=== PATIENT | male | born 1965 | race Caucasian/White ===

== ENCOUNTER → 2021-06-23 14:17 | Outpatient (BNVA) | payer OTHER, SELFPAY | PROVIDERS: Family Provider Counselor Professional; Visit Provider Nurse Practitioner Family | DX: Z20.822 Contact with and (suspected) exposure to COVID-19 (principal); J06.9 Acute upper respiratory infection, unspecified | CPT/HCPCS: 87635 ==

== ENCOUNTER 2021-07-12 11:59 | Inpatient (IN) | payer OTHER, SELFPAY ==
[2021-07-12] VITALS (13 sets, daily range): BP systolic 123–150; BP diastolic 76–100; PULSE 66–89; RESP 18–28; TEMP 36.4–36.9; O2SAT 71–100; BMI 25.6; BMI 22.7
--- NOTE | 2021-07-12 12:08 | XR_ITS ---
WS: [id number] Exam: XR chest 1V portable [id number] Date/Time of Exam: 07/12/2021 12:08 PM Reason For Exam: covid pna Comparison 06/23/2018. There is consolidating pneumonia in the bilateral lower lobes as well as the lingula and the right up per lobe. The lungs are fully inflated. Cardiomediastinal silhouette is unremarkable. No pleural effu sions. XR/XR chest 1V portable [id number] IMPRESSION: 1. Bilateral consolidating infiltrates consistent with pneumonia.
--- NOTE | 2021-07-12 12:10 | CT_ITS ---
WS: [id number] CT CHEST ANGIOGRAPHY WITH REFORMATS HISTORY: Short of breath. Evaluate for pulmonary embolism. TECHNIQUE: Contiguous axial images are obtained through the chest during arterial injection of intrav enous contrast. Images are reconstructed to evaluate the pulmonary arteries. MIP imaging also reviewe d. All CT scans at [facility] use at least one of these dose optimization techniques: automat ed exposure control; mA and/or kV adjustment per patient size (includes targeted exams where dose is matched to clinical indication); or iterative reconstruction. CONTRAST: Omnipaque 350; 55 mL IV. DLP: 897.07 mGy.cm COMPARISON: None available. Suboptimal opacification of the pulmonary arteries. Suspicious for pulmonary emboli and a partial milady ling defect in the proximal LEFT lower lobe pulmonary artery. There is significant motion artifact an d adjacent opacification obscuring the pulmonary arteries. Pulmonary artery size is slightly enlarged . Atherosclerosis aorta. There is extensive groundglass and more developing consolidations throughout both lobes, greatest in the lower lung an. Prominent mediastinal and hilar lymph nodes from reactive adenopathy. Mild enl argement of the heart. No RIGHT heart strain. Small effusion surrounding the heart. Upper abdomen is limited by motion artifact. Increase in thoracic kyphosis. CT/CT angio chest PE protcl [id number] IMPRESSION: 1. Suboptimal opacification of pulmonary arteries. Highly suspicious for parti al opacification LEFT lower lobe proximal pulmonary artery. 2. Diffuse bilateral opacifications from Covid 19. 3. Indeterminate but probably reactive lymphadenopathy in the mediastinum and hilum.
--- NOTE | 2021-07-12 12:11 | ED_ITS ---
HPI - General Adult General: Chief complaint: Shortness of Breath/Dyspnea Stated complaint: SOB, COVID Time Seen by Provider: 07/12/21 12:00 History of Present Illness: HPI narrative: CC: Shortness of breath, fever and generalized weakness HPI: This is a 55 yo patient w/ hx of covid diagnosis from 18 days ago BIBA for moderate respiratory distress at home x 18days. Symptoms x 8days and patient was diagnosed with covid now progressively worsening symptoms. Denies chest pain, N/V, diaphoresis, exertional shortness of breath, GI or other complaints. Denies any pleuritic chest pain, recent surgery/immobilization/travel, or hematemesis or hx of VTE in the past. En route, rescue placed on NC with O2 sat of 6-70% on 4L. Patient received 3 breathing treatments in route Onset: 18 days ago Duration: ongoing for the last 8 days Location: home Severity: moderate/severe Associated symptoms: Reports dyspnea and malaise; Deny chest pain, nausea, rash, palpitations or vomiting Review of Systems Const: Reports: fever(s), chills, fatigue and malaise Eyes: Denies: change in vision ENMT: Denies: mouth pain Card: Denies: chest pain or palpitations Resp: Reports: dyspnea and non-productive cough GI: Denies: abdominal pain, nausea, vomiting or diarrhea : Denies: dysuria Musc: Denies: extremity pain Skin/Breast: Denies: rash or new lesions Neuro: Denies: weakness in extremities Psych: Reports: other (Normal mood) Kenroy/Lymph: Denies: easy bruising PFSH ED PFSH: Medical History 2019 novel coronavirus-infected pneumonia (NCIP) Family History Denies family history of CAD (coronary artery disease) Cancer Social History Smoking and tobacco status: never smoked Alcohol intake: never Physical Exam Const: COMMON NORMALS: alert HENMT: COMMON NORMALS: atraumatic HEAD & SCALP: atraumatic MOUTH: moist mucous membranes not abnormal Eye: COMMON NORMALS: EOMs intact bilaterally and conjunctivae normal CONJUNCTIVA: Yes conjunctivae normal Neck/C-Spine: COMMON NORMALS: full ROM and supple Resp: OTHER: Tachypnea, +coarse breath sounds b/l Cardio: COMMON NORMALS: regular rate RATE: regular rate GI: COMMON NORMALS: Soft to palpation and non-tender PALPATION: Yes Soft to palpation Extremity: COMMON NORMALS: full ROM Neuro: SENSORIUM/ORIENTATION: Yes alert MOTOR EXAM: No Abnormal motor strength present and Other motor observations present (no focal motor deficits) Psych: COMMON NORMALS: speech normal SPEECH: Yes normal speech MOOD & AFFECT: Yes euthymic mood Course Vital Signs: Vital signs: Vital Signs Temperature 98.5 F 07/12/21 12:04 Pulse Rate 83 07/12/21 13:09 Respiratory Rate 28 H 07/12/21 13:09 Blood Pressure 145/76 07/12/21 13:09 Pulse Oximetry 92 07/12/21 13:09 MDM - General Adult MDM Narrative: Medical decision making narrative: [55]yo patient w/ hx of covid diagonsis from 3 week ago BIBA for respiratory distress. On arrival patient is satting at 60-70% ON 4l AT HOME with mild increased work of breathing Based on history, exam and findings, presentation most consistent with moderate/severe covid PNA requiring increasing oxygen supprot. Low suspicion for PNA, ACS, tamponade, CHF, aortic dissection. EKG: No signs of STEMI and no evidence of Brugada?s sign, delta wave, epsilon wave, significantly prolonged QTc, or malignant arrhythmia as source of exacerbation. Workup today: ECG, CBC, BMP, Troponin, BNP, CXR, COVID labs, ABG, lactic acid, blood culture Intervention: Tylenol 1gram, PO challenge, serial reassessment, oxygen, remdesivir, decadron [12:30pm] On reassessment, the patient continues to be in moderate respiratory distress requiring high flow at 45L/min at 85%. HDS, AAOx3 and mentating without issues. The patient is now more comfortable on BIPAP compared to prior without any signs of increasing fatigue. At this point, a decision was made to admit patient FOR close observation. Patient agrees with plan. Patient is found to have a possible PE on CTA. S/p heparin bolus and drip. Disposition: Admission for serial observation Lab Data: Labs: Lab Results 07/12/21 07/12/21 07/12/21 12:03 12:25 12:25 WBC RBC Hgb Hct MCV MCH MCHC RDW Plt Count MPV Neut % (Auto) Lymph % (Auto) [place] % (Auto) Eos % (Auto) Baso % (Auto) Neut # (Auto) Lymph # (Auto) [place] # (Auto) Eos # (Auto) Baso # (Auto) Nucleated RBC % (a uto) Nucleated RBCs # PT 17.70 SECONDS H S ECONDS (12.1-14.9) INR 1.41 H (0.8-1.2) Fibrinogen 290 mg/dL mg/dL (174-498) D-Dimer >= 20.00 ug/mIFEU H ug/mIFEU (0-0.59) Specimen Type Arterial Sample Site Radial, left ABG pH 7.50 H (7.35-7.45) ABG pCO2 32.1 mmHg L mmHg (35-45) ABG pO2 54.1 mmHg L mmHg (80.0-100.0) ABG HCO3 24.9 mmol/L mmol/ L (22-26) ABG Base Excess 2.0 mmol/L mmol/L (-2.0-2.0) Nilesh Test Pos Hematocrit 33.9 % L % (42-52) O2 Delivery Device Nrb O2 Liters/Min 15.0 % % FiO2 100.0 % % Side Laster Staple ID Ed Sodium 133 mmol/L L mmol /L (136-145) Potassium 4.4 mmol/L mmol/L (3.5-5.1) Chloride 97 mmol/L L mmol/ L (98-107) Carbon Dioxide 20 mmol/L L mmol/ L (22-29) Anion Gap 20.4 H (5-19) BUN 7 mg/dL mg/dL (6-20) Creatinine 0.5 mg/dL L mg/dL (0.7-1.2) GFR Calculation 171.4 mL/min H mL /min (90-130) Glucose 93 mg/dL mg/dL (65-115) Calculated Osmolal ity 274 mOsm/kg L mOs m/kg (285-295) Lactic Acid Calcium 7.8 mg/dL L mg/dL (8.5-10.5) Magnesium 2.1 mg/dL mg/dL (1.7-2.3) Ferritin 569 ng/mL H ng/mL (30-400) Total Bilirubin 0.4 mg/dL mg/dL (0.15-1.2) AST 28 U/L U/L (0-40) ALT 39 U/L U/L (0-41) Alkaline Phosphata se 357 IU/L H IU/L (40-130) Troponin T Gen 5 n g/L C-Reactive Protein 214.2 mg/L H mg/L (0.0-4.9) NT-Pro-B Natriuret Pep 545 pg/mL H pg/mL (0-125) Total Protein 6.1 g/dL L g/dL (6.6-8.7) Albumin 2.8 g/dL L g/dL (3.5-5.2) Globulin 3.3 g/dL g/dL (1.3-4.6) Procalcitonin 0.09 ng/mL ng/mL (0-0.5) 07/12/21 07/12/21 07/12/21 12:25 12:25 12:25 WBC 13.4 10^3/uL H 10 ^3/uL (4.0-10.0) RBC 3.67 10^6/uL L 10 ^6/uL (4.1-5.3) Hgb 11.0 g/dL L g/dL (11.7-16.6) Hct 34.0 % L % (42.0-52.0) MCV 92.6 fl fl (80-94) MCH 30.0 pg pg (28.0-34.0) MCHC 32.4 g/dL g/dL (30.0-36.0) RDW 13.0 % % (12.1-15.1) Plt Count 294 10^3/cmm 10^3 /cmm (130-400) MPV 10.3 fL fL (7.4-10.4) Neut % (Auto) 74.7 % % Lymph % (Auto) 12.5 % % [place] % (Auto) 9.5 % % Eos % (Auto) 1.9 % % Baso % (Auto) 0.4 % % Neut # (Auto) 10.02 10^3/uL H 1 0^3/uL (1.8-7.7) Lymph # (Auto) 1.7 10^3/uL 10^3/ uL (0.8-4.8) [place] # (Auto) 1.3 10^3/uL H 10^ 3/uL (0.2-0.9) Eos # (Auto) 0.3 10^3/uL 10^3/ uL (0.0-0.8) Baso # (Auto) 0.1 10^3/uL 10^3/ uL (0.0-0.1) Nucleated RBC % (a uto) 0 % % Nucleated RBCs # 0.0 /100WBC /100W BC PT INR Fibrinogen D-Dimer Specimen Type Sample Site ABG pH ABG pCO2 ABG pO2 ABG HCO3 ABG Base Excess Nilesh Test Hematocrit O2 Delivery Device O2 Liters/Min FiO2 Side Laster Staple ID Sodium Potassium Chloride Carbon Dioxide Anion Gap BUN Creatinine GFR Calculation Glucose Calculated Osmolal ity Lactic Acid 1.6 mmol/L mmol/L (0.5-2.2) Calcium Magnesium Ferritin Total Bilirubin AST ALT Alkaline Phosphata se Troponin T Gen 5 n g/L 28 ng/L H ng/L (0-15) C-Reactive Protein NT-Pro-B Natriuret Pep Total Protein Albumin Globulin Procalcitonin Imaging Data^: Other Imaging: Radiologist's impression: [email or web address] [id number] Scan ReportSigned Patient: Geena Landaverde #: [id number]: 1965Acct#:[id number]/Sex: 55 / MADM Date: 07/12/21Loc: [facility]/Bed:Attending Dr: Ordering Provider/Ordering MD: Micky Vela MD Date of Service: 07/12/21 Procedure(s): CT angio chest PE protcl [id number] Accession Number(s): [id number] Report Number: [id number] WS: [id number] CT CHEST ANGIOGRAPHY WITH REFORMATS HISTORY: Short of breath. Evaluate for pulmonary embolism. TECHNIQUE: Contiguous axial images are obtained through the chest during arterial injection of intravenous contrast. Images are reconstructed to evaluate the pulmonary arteries. MIP imaging also reviewed. [facility] CT [email or web address] use at least one of these dose optimization techniques: automated exposure control; mA and/or kV adjustment per patient size (includes targeted exams where dose is matched to clinical indication); or iterative reconstruction. CONTRAST: Omnipaque 350; 55 mL IV. DLP: 897.07 mGy.cm COMPARISON: None available. Suboptimal opacification of the pulmonary arteries. Suspicious for pulmonary emboli and a partial filling defect in the proximal LEFT lower lobe pulmonary artery. There is significant motion artifact and adjacent opacification obscuring the pulmonary arteries. Pulmonary artery size is slightly enlarged. Atherosclerosis aorta. There is extensive groundglass and more developing consolidations throughout both lobes, greatest in the lower lung an. Prominent mediastinal and hilar lymph nodes from reactive adenopathy. Mild enlargement of the heart. No RIGHT heart strain. Small effusion surrounding the heart. Upper abdomen is limited by motion artifact. Increase in thoracic kyphosis. CT/CT angio chest PE protcl [id number] IMPRESSION: 1. Suboptimal opacification of pulmonary arteries. Highly suspicious for partial opacification LEFT lower lobe proximal pulmonary artery. 2. Diffuse bilateral opacifications from Covid 19. 3. Indeterminate but probably reactive lymphadenopathy in the mediastinum and hilum. 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
[2021-07-12 12:13] LABS: ABG PCO2 32.1 mmHg (35-45); Arterial Blood Gas Hematocrit 33.9 % (42-52); Blood Gas Allen Test Pos; Blood Gas Operator Identificat ED; Blood Gas Sample Site Radial, left; Blood Gas Sample Type Arterial; HCO3 ABG 24.9 mmol/L (22-26); Oxygen Device NRB; PO2 ABG 54.1 mmHg (80.0-100.0)
--- NOTE | 2021-07-12 12:20 | ECG_ITS ---
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 Measurements Intervals Stow Rate: 82 P: 64 MA: 166 QRS: -3 QRSD: 102 T: 39 QT: 392 QTc: 461 Interpretive Statements SINUS RHYTHM POSSIBLE LEFT ATRIAL ENLARGEMENT [-0.1mV P-WAVE IN V1/V2] Compared to ECG 06/24/2018 00:50:55 No significant changes Electronically Signed On 07-15-2021 19:33:40 POLITICAL SCIENCE CHAIR by Eufemia Figueroa M.D. [id number]
[2021-07-12] MEDS: dexamethasone 4 mg/mL INJ 6 MG IVP (12:37)
[2021-07-12 12:42] LABS: Basophils # 0.1 10^3/uL (0.0-0.1); Basophils % 0.4 %; Eosinophils # 0.3 10^3/uL (0.0-0.8); Eosinophils % 1.9 %; Lymphocytes # 1.7 10^3/uL (0.8-4.8); Lymphocytes % 12.5 %; Mean Corpuscular HGB Conc 32.4 g/dL (30.0-36.0); Mean Corpuscular Volume 92.6 fl (80-94); Mean Platelet Volume 10.3 fL (7.4-10.4); Monocytes # 1.3 10^3/uL (0.2-0.9); Monocytes % 9.5 %; Neutrophils # 10.02 10^3/uL (1.8-7.7); Neutrophils % 74.7 %; Nucleated Red Blood Cells % 0 %; Platelet Count 294 10^3/cmm (130-400); Red Blood Count 3.67 10^6/uL (4.1-5.3); White Blood Count 13.4 10^3/uL (4.0-10.0)
[2021-07-12] MEDS: iohexol 350 mg/mL 100 mL Btl IV (12:56)
--- NOTE | 2021-07-12 12:58 | PC.NURSE ---
patient returned to room from ct. patient placed on nuclear monitoring technician. patient in n obvious distress.
[2021-07-12 13:00] LABS: Fibrinogen 290 mg/dL (174-498)
[2021-07-12 13:03] LABS: INR 1.41 (0.8-1.2)
[2021-07-12 13:05] LABS: Lactic Sepsis W/Reflex 1.6 mmol/L (0.5-2.2)
[2021-07-12 13:08] LABS: Troponin T (5th) Once 28 ng/L (0-15)
[2021-07-12 13:14] LABS: NT Pro B Type Natriuretic Pept 545 pg/mL (0-125); Procalcitonin 0.09 ng/mL (0-0.5)
[2021-07-12] MEDS: remdesivir 200 MG in sodium chloride 0.9% (100 ml) 60 ML 100 MG IV (13:23)
[2021-07-12 13:26] LABS: Alanine Aminotransferase 39 U/L (0-41); Albumin Level 2.8 g/dL (3.5-5.2); Alkaline Phosphatase 357 IU/L (40-130); Anion Gap 20.4 (5-19); Aspartate Amino Transferase 28 U/L (0-40); Blood Urea Nitrogen 7 mg/dL (6-20); C Reactive Protein 214.2 mg/L (0.0-4.9); Calcium 7.8 mg/dL (8.5-10.5); Carbon Dioxide 20 mmol/L (22-29); Chloride 97 mmol/L (98-107); Ferritin 569 ng/mL (30-400); Globulin 3.3 g/dL (1.3-4.6); Glomerular Filtration Rate 171.4 mL/min (90-130); Glucose 93 mg/dL (65-115); Magnesium 2.1 mg/dL (1.7-2.3); Osmolality Calculated 274 mOsm/kg (285-295); Potassium 4.4 mmol/L (3.5-5.1); Sodium 133 mmol/L (136-145); Total Bilirubin 0.4 mg/dL (0.15-1.2); Total Protein 6.1 g/dL (6.6-8.7)
[2021-07-12 13:30] LABS: D Dimer >= 20.00 ug/mIFEU (0-0.59)
[2021-07-12] MEDS: heparin 5,000 unit/mL INJ 1 mL 4000 UNIT IVP (13:44)
[2021-07-12] MEDS: heparin drip 25,000 UNIT/500 ML PREMIX 19.56 UNIT IV (13:55)
--- NOTE | 2021-07-12 15:03 | PC.NURSE ---
ekta sleeping comfortably in bed at this time. patient on cardiac exercise specialist. HI-MIKY nasal cannula at 45 lpm @ 85% going. patient spo2 99%. patient in no obvious distress. Side rails raised x 2 and bed in low, locked position. call light withn reach.
--- NOTE | 2021-07-12 15:37 | P.HP_ITS ---
Providers/Chief Complaint Primary Care Provider: [facility] Chief Complaint: SOB, COVID History of Present Illness Pleasant 55-year-old gentleman originally diagnosed with COVID-19 on 06/23 return to the hospital due to severe dyspnea, cough, blood-tinged, diagnosed with COVID-19 on 06/23. In ER she is found to be in hypoxic respiratory failure, requiring initially 85% FiO2 by heated high flow cannula. D-dimer noted elevated more than 20. CT angiogram of the chest with findings of suboptimal obfuscation of the pulmonary arteries, but highly suspicious for partial opacification left left lower lobe proximal pulmonary artery. Diffuse bilateral opacifications from COVID-19. Indeterminate but probably reactive ly mphadenopathy in the mediastinum and hilum. She reports coughing, also having headaches, previously diarrhea, some blood in stool. Review of Systems 2 Const: Reports: fatigue and malaise Eyes: Denies: change in vision ENMT: Denies: odynophagia or swelling of lips/tongue Card: Reports: dyspnea on exertion; Denies: chest pain, palpitations, irregular heart rhythm, swelling of feet/ankles or syncope Resp: Reports: dyspnea, non-productive cough and hemoptysis GI: Reports: diarrhea and other (Small of blood in the bowl, small amount of the tissue paper); Denies: abdominal pain, nausea or vomiting : Denies: flank pain, dysuria or hematuria Musc: Denies: extremity pain or extremity swelling Skin/Breast: Denies: rash, erythema or new lesions Neuro: Reports: headache(s); Denies: numbness in extremities, weakness in extremities, sensory changes or lack of coordination Ken[place]/Lymph: Denies: petechiae Medications/Allergies Home Medications Medication Instructions Recorded Confirmed Last Taken Type No Known Home Medications 06/23/21 07/12/21 Unknown History Allergies Allergy/AdvReac Type Severity Reaction Status Date / Time No Known Allergies Allergy Verified 07/12/21 13:59 PFSH Acute PFSH: Medical History 2019 novel coronavirus-infected pneumonia (NCIP) No significant past medical history Surgical History H/O hand surgery Family History Denies family history of CAD (coronary artery disease) Cancer Social History Smoking and tobacco status: former smoker Alcohol intake: never Substance/Drug Use: never Marital status: Current occupational status: employed Vitals/I&O/Wt Last Vital Signs Temp 98.5 F 07/12/21 12:04 Pulse 73 07/12/21 15:11 Resp 18 07/12/21 15:11 BP 150/100 07/12/21 14:41 Pulse Ox 100 07/12/21 15:11 Weight last 48 hrs Weight 69.853 kg Physical Exam Const: COMMON NORMALS: no acute distress and patient oriented x3 HENMT: COMMON NORMALS: oropharynx normal Neck/C-Spine: COMMON NORMALS: no JVD Resp: COMMON NORMALS: normal respiratory effort and clear to auscultation bilaterally AUSCULTATION: clear to auscultation bilaterally Cardio: COMMON NORMALS: no JVD, regular rhythm, S1 normal heart sound present, S2 normal heart sound present and No murmurs present (Cardio) RHYTHM: regular rhythm HEART SOUNDS: S1 normal heart sound present and S2 normal heart sound present GI: COMMON NORMALS: Normal to inspection, nondistended, normoactive bowel sounds present, Soft to palpation and non-tender PALPATION: Yes Soft to palpation Extremity: COMMON NORMALS: no joint enlargement and no pedal edema Neuro: COMMON NORMALS: patient oriented x3 and moves all extremities Skin: COMMON NORMALS: no rashes or lesions noted GENERAL SKIN EXAM: no rashes or lesions noted Data : 07/12/21 12:25 07/12/21 12:25 Micro: Microbiology 07/12/21 13:55 Blood Culture - Preliminary Blood SPECIMEN COLLECTED 07/12/21 12:25 Blood Culture - Preliminary Blood SPECIMEN COLLECTED A&P Assessment and plan (1) Pulmonary embolism: Suboptimal imaging, but findings suspicious for left lower lobe PE. Started on anticoagulation. With some report of blood in the toilet bowl, on tissue paper, started from now on heparin drip. Monitor for any worsening bleeding. Monitor hemodynamics. So far no suggestion of hemodynamic instability. Discussed with him transition possibly to Lovenox in case he is tolerating heparin drip well, and transition to oral anticoagulant at that time he is ready to leave the hospital. Status: Acute (2) Acute hypoxemic respiratory failure: Requiring 85% FiO2 initially. Somewhat better after started on treatment down to 50% FiO2. Continue oxygen support. Started on Decadron, remdesivir. CRP is elevated. Recheck in the morning. In case worsening despite current therapy with elevated CRP, consider additional measures. In addition to Decadron, Omnicef, continue supportive measures, antitussives. Status: Acute (3) 2019 novel coronavirus-infected pneumonia (NCIP): As above. Status: Acute Additional A&P Information Hematochezia: Small amount of blood in the bowl, small amount of tissue paper. Monitor for any worse bleeding as he is requiring anticoagulation currently. Once his condition improves would benefit from additional assessment by colonoscopy. Attestations Medical Necessity Statement*: Admission of over 2 midnights is currently needed for assessment of management of hypoxic respite failure with severe COVID-19. Coding Level of Care Code Acute Drip Box Tender for Nella Roni Diagnoses Pulmonary embolism I26.99 Acute hypoxemic respiratory failure J96.01 2019 novel coronavirus-infected pneumonia (NCIP) U07.1; J12.82
[2021-07-12] MEDS: lactated ringers 1,000 ML 100 ML IV (20:21)
[2021-07-12] MEDS: pantoprazole DR 40 mg Tablet PO (20:21)
[2021-07-12 20:46] LABS: Partial Thromboplastin Time 38.9 SECONDS (23.9-36.7)
--- NOTE | 2021-07-12 20:58 | PC.NURSE ---
i reported high reps 22 to nurse
[2021-07-12 22:37] LABS: Hemoglobin 12.2 g/dL (11.7-16.6)
[2021-07-13] VITALS (17 sets, daily range): BP systolic 123–145; BP diastolic 69–89; PULSE 66–86; RESP 16–24; TEMP 36.4–37.2; O2SAT 55–95
[2021-07-13 02:26] LABS: Basophils % 0.2 %; Hematocrit 33.7 % (42.0-52.0); Hemoglobin 11.1 g/dL (11.7-16.6); Lymphocytes # 1.1 10^3/uL (0.8-4.8); Lymphocytes % 11.4 %; Mean Corpuscular HGB Conc 32.9 g/dL (30.0-36.0); Mean Corpuscular Hemoglobin 29.7 pg (28.0-34.0); Mean Corpuscular Volume 90.1 fl (80-94); Mean Platelet Volume 10.4 fL (7.4-10.4); Neutrophils # 7.58 10^3/uL (1.8-7.7); Neutrophils % 77.4 %; Nucleated Red Blood Cells % 0 %; Platelet Count 352 10^3/cmm (130-400); Red Blood Count 3.74 10^6/uL (4.1-5.3); Red Cell Distribution Width 12.8 % (12.1-15.1); White Blood Count 9.8 10^3/uL (4.0-10.0)
[2021-07-13 02:39] LABS: Alanine Aminotransferase 31 U/L (0-41); Albumin Level 2.7 g/dL (3.5-5.2); Alkaline Phosphatase 315 IU/L (40-130); Anion Gap 17.3 (5-19); Aspartate Amino Transferase 18 U/L (0-40); Blood Urea Nitrogen 14 mg/dL (6-20); Calcium 7.7 mg/dL (8.5-10.5); Carbon Dioxide 21 mmol/L (22-29); Chloride 101 mmol/L (98-107); Globulin 3.1 g/dL (1.3-4.6); Glomerular Filtration Rate 221.7 mL/min (90-130); Glucose 140 mg/dL (65-115); Osmolality Calculated 283 mOsm/kg (285-295); Potassium 4.3 mmol/L (3.5-5.1); Sodium 135 mmol/L (136-145); Total Bilirubin 0.2 mg/dL (0.15-1.2); Total Protein 5.8 g/dL (6.6-8.7)
[2021-07-13 02:46] LABS: Partial Thromboplastin Time 47.9 SECONDS (23.9-36.7)
[2021-07-13 03:14] LABS: D Dimer > 20.00 ug/mIFEU (0-0.59)
[2021-07-13] MEDS: heparin 5,000 unit/mL INJ 1 mL IV ×2 (03:34→10:30)
[2021-07-13] MEDS: acetaminophen 325 mg Tablet 650 MG PO (05:04)
[2021-07-13] MEDS: lactated ringers 1,000 ML 100 ML IV ×2 (05:35→15:08)
[2021-07-13] MEDS: pantoprazole DR 40 mg Tablet PO (09:05)
[2021-07-13 09:56] LABS: Partial Thromboplastin Time 38.9 SECONDS (23.9-36.7)
[2021-07-13] MEDS: dexamethasone 10 mg/mL INJ 6 MG IVP (13:03)
[2021-07-13] MEDS: ipratropium-albuterol 3 mL Neb INHALATION ×2 (14:19→20:06)
[2021-07-13] MEDS: enoxaparin 80 mg/0.8 mL Syringe 70 MG SUBCUT (15:07)
--- NOTE | 2021-07-13 15:11 | PC.NURSE ---
Dr. Rushing gave orders to stop Heprin drip at 1440.
[2021-07-13] MEDS: remdesivir 100 MG in sodium chloride 0.9% (100 ml) 80 ML IV (18:50)
--- NOTE | 2021-07-13 21:06 | P.PN_ITS ---
Subjective Subjective: Interval history: Denies chest pain or pressure. No hemoptysis. No bloody stool. Vitals/I&O/Wt Last Vital Signs Temp 98.2 F 07/13/21 19:46 Pulse 78 07/13/21 20:16 Resp 18 07/13/21 20:16 BP 128/69 07/13/21 19:46 Pulse Ox 94 07/13/21 20:16 07/13/21 07/13/21 07/13/21 06:59 14:59 22:59 Intake Total 1187.393 / 1187.393 335.94 / 335.94 955 / 1290.94 Output Total 0 / 0 300 / 300 1300 / 1600 Balance 1187.393 / 1187.393 35.94 / 35.94 -345 / -309.06 Weight last 48 hrs Weight 69.853 kg Weight 69.853 kg Physical Exam Const: COMMON NORMALS: no acute distress and patient oriented x3 HENMT: COMMON NORMALS: oropharynx normal Neck/C-Spine: COMMON NORMALS: no JVD Resp: COMMON NORMALS: normal respiratory effort and clear to auscultation bilaterally AUSCULTATION: clear to auscultation bilaterally OTHER: Coarse breath sounds. No crackles. Cardio: COMMON NORMALS: no JVD, regular rhythm, S1 normal heart sound present, S2 normal heart sound present and No murmurs present (Cardio) RHYTHM: regular rhythm HEART SOUNDS: S1 normal heart sound present and S2 normal heart sound present GI: COMMON NORMALS: Normal to inspection, nondistended, normoactive bowel sounds present, Soft to palpation and non-tender PALPATION: Yes Soft to palpation Extremity: COMMON NORMALS: no joint enlargement and no pedal edema Neuro: COMMON NORMALS: patient oriented x3 and moves all extremities Skin: COMMON NORMALS: no rashes or lesions noted GENERAL SKIN EXAM: no rashes or lesions noted Data : 07/13/21 02:02 07/13/21 02:02 Micro: Microbiology 07/12/21 13:55 Blood Culture - Preliminary Blood NEGATIVE TO DATE 07/12/21 12:25 Blood Culture - Preliminary Blood NEGATIVE TO DATE A&P Assessment and plan (1) Pulmonary embolism: Hemoglobin slightly down to 11, similar to presentation. No hemoptysis. No bloody stool. Switch from heparin drip to Lovenox. Reassess hemoglobin in the morning. Gradual improvement of oxygen requirement. Suboptimal imaging, but findings suspicious for left lower lobe PE. Started on anticoagulation. With some report of blood in the toilet bowl, on tissue paper, started from now on heparin drip. Monitor for any worsening bleeding. Monitor hemodynamics. So far no suggestion of hemodynamic instability. Discussed with him transition possibly to Lovenox in case he is tolerating heparin drip well, and transition to oral anticoagulant at that time he is ready to leave the hospital. Status: Acute (2) Acute hypoxemic respiratory failure: Gradual improvement of oxygen requirement, FiO2 down to 50%. Continue anticoagulation for PE. Continue oxygen support and wean as tolerated. Continue on Decadron, remdesivir. CRP is elevated. Recheck in the morning. Repeat CRP Status: Acute (3) 2019 novel coronavirus-infected pneumonia (NCIP): As above. Status: Acute Additional A&P Information Hematochezia: So far without recurrence. Small amount of blood in the bowl, small amount of tissue paper. Monitor for any worse bleeding as he is requiring anticoagulation currently. Once his condition improves would benefit from additional assessment by colonoscopy. Attestations Medical Necessity Statement*: Continue admission for assessment management of hypoxic respiratory failure with PE, severe COVID-19. Coding Level of Care Code Acute Project Asst for [facility] Roni Diagnoses Pulmonary embolism I26.99 Acute hypoxemic respiratory failure J96.01 2019 novel coronavirus-infected pneumonia (NCIP) U07.1; J12.82
[2021-07-14] VITALS (14 sets, daily range): BP systolic 104–152; BP diastolic 59–80; PULSE 22–101; RESP 16–51; TEMP 36.4–36.9; O2SAT 80–95
[2021-07-14] MEDS: lactated ringers 1,000 ML 100 ML IV ×3 (00:18→20:23)
[2021-07-14] MEDS: ipratropium-albuterol 3 mL Neb INHALATION ×4 (02:32→20:32)
[2021-07-14] MEDS: enoxaparin 80 mg/0.8 mL Syringe 70 MG SUBCUT ×2 (02:51→14:45)
[2021-07-14] MEDS: acetaminophen 325 mg Tablet 650 MG PO ×2 (02:51→21:03)
[2021-07-14 06:20] LABS: Basophils % 0.1 %; Hemoglobin 10.4 g/dL (11.7-16.6); Lymphocytes # 1.2 10^3/uL (0.8-4.8); Lymphocytes % 8.3 %; Mean Corpuscular HGB Conc 32.5 g/dL (30.0-36.0); Mean Corpuscular Volume 92.2 fl (80-94); Mean Platelet Volume 10.6 fL (7.4-10.4); Monocytes # 1.3 10^3/uL (0.2-0.9); Monocytes % 9.2 %; Neutrophils % 81.7 %; Nucleated Red Blood Cells % 0 %; Platelet Count 432 10^3/cmm (130-400); Red Blood Count 3.47 10^6/uL (4.1-5.3); Red Cell Distribution Width 12.9 % (12.1-15.1); White Blood Count 14.2 10^3/uL (4.0-10.0)
[2021-07-14 06:32] LABS: Alanine Aminotransferase 27 U/L (0-41); Albumin Level 2.6 g/dL (3.5-5.2); Alkaline Phosphatase 266 IU/L (40-130); Anion Gap 17.2 (5-19); Aspartate Amino Transferase 17 U/L (0-40); Blood Urea Nitrogen 11 mg/dL (6-20); Carbon Dioxide 20 mmol/L (22-29); Chloride 102 mmol/L (98-107); Globulin 3.1 g/dL (1.3-4.6); Glomerular Filtration Rate 221.7 mL/min (90-130); Glucose 122 mg/dL (65-115); Osmolality Calculated 281 mOsm/kg (285-295); Potassium 4.2 mmol/L (3.5-5.1); Sodium 135 mmol/L (136-145); Total Bilirubin 0.2 mg/dL (0.15-1.2); Total Protein 5.7 g/dL (6.6-8.7)
[2021-07-14 06:39] LABS: C Reactive Protein 181.6 mg/L (0.0-4.9)
[2021-07-14 06:44] LABS: D Dimer >= 20.00 ug/mIFEU (0-0.59)
[2021-07-14] MEDS: pantoprazole DR 40 mg Tablet PO (08:57)
[2021-07-14] MEDS: dexamethasone 10 mg/mL INJ 6 MG IVP (11:13)
[2021-07-14] MEDS: ALPRAZolam 0.5 mg Tablet 0.25 MG PO ×3 (11:14→21:04)
[2021-07-14] MEDS: remdesivir 100 MG in sodium chloride 0.9% (100 ml) 80 ML IV (17:25)
--- NOTE | 2021-07-14 19:01 | P.PN_ITS ---
Subjective Subjective: Interval history: This morning feeling weak and tired, FiO2 was increased to 65%. Denies chest pain. No headache, nausea or vomiting. Vitals/I&O/Wt Last Vital Signs Temp 98.4 F 07/14/21 16:00 Pulse 51 L 07/14/21 18:51 Resp 26 H 07/14/21 18:51 BP 135/65 07/14/21 16:00 Pulse Ox 93 07/14/21 18:51 07/14/21 07/14/21 07/14/21 06:59 14:59 22:59 Intake Total 916.667 / 2207.607 1940 / 1940 100 / 2040 Output Total 1120 / 3140 1900 / 1900 550 / 2450 Balance -203.333 / -932.393 40 / 40 -450 / -410 Weight last 48 hrs Weight 65.516 kg Weight 69.853 kg Physical Exam Const: COMMON NORMALS: no acute distress and patient oriented x3 HENMT: COMMON NORMALS: oropharynx normal Neck/C-Spine: COMMON NORMALS: no JVD Resp: COMMON NORMALS: normal respiratory effort and clear to auscultation bilaterally AUSCULTATION: clear to auscultation bilaterally Cardio: COMMON NORMALS: no JVD, regular rhythm, S1 normal heart sound present, S2 normal heart sound present and No murmurs present (Cardio) RHYTHM: regular rhythm HEART SOUNDS: S1 normal heart sound present and S2 normal heart sound present GI: COMMON NORMALS: Normal to inspection, nondistended, normoactive bowel sounds present, Soft to palpation and non-tender PALPATION: Yes Soft to palpation Extremity: COMMON NORMALS: no joint enlargement and no pedal edema Neuro: COMMON NORMALS: patient oriented x3 and moves all extremities Skin: COMMON NORMALS: no rashes or lesions noted GENERAL SKIN EXAM: no rashes or lesions noted Data : 07/14/21 05:05 07/14/21 05:05 Micro: Microbiology 07/12/21 13:55 Blood Culture - Preliminary Blood NEGATIVE TO DATE A&P Assessment and plan (1) Acute hypoxemic respiratory failure: With worsening oxygenation, worsening hypoxic respiratory failure, requiring higher FiO2, feeling weak, tired, desaturating easily, with elevated inflammatory marker, we discussed additional option of treatment with baricitinib. Discussed risks, possible benefits, he agreed to proceed and the medication was requested for him. Continue oxygen support. Wean down as tolerating. Continue on Decadron, remdesivir. Status: Acute (2) Pulmonary embolism: Continue Lovenox. Monitor hemoglobin. Switch to p.o. anticoagulation prior to discharge. Hemodynamically has been stable. Status: Acute (3) 2019 novel coronavirus-infected pneumonia (NCIP): As above. Status: Acute Additional A&P Information Hematochezia: So far without recurrence. Small amount of blood in the bowl, small amount of tissue paper. Monitor for any worse bleeding as he is requiring anticoagulation currently. Once his condition improves would benefit from additional assessment by colonoscopy. Attestations Medical Necessity Statement*: Continue admission for assessment of management of hypoxic respiratory failure with severe COVID-19, PE. 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
--- NOTE | 2021-07-14 20:00 | PC.NURSE ---
after vitals pt O2 found to be 80% on HHF, nurse notified.
--- NOTE | 2021-07-14 20:07 | PC.NURSE ---
Shift report received from Suma JIN. Patient in bed/resting. No s/s of pain or discomfort. O2 45/40. IV patent infusing LR at 100mL/hr. No needs noted at this time.
--- NOTE | 2021-07-14 21:33 | PC.NURSE ---
patient laying on right side O2 sat 90 %. Education provided to lie prone to help improve O2 sats. Verbalized understanding.
--- NOTE | 2021-07-14 23:20 | PC.NURSE ---
patient in bed /resting / laying on right side O2 92% No s/s of pain or discomfort
[2021-07-15] VITALS (14 sets, daily range): BP systolic 118–168; BP diastolic 74–85; PULSE 52–98; RESP 18–26; TEMP 36.2–36.8; O2SAT 84–96
[2021-07-15] MEDS: enoxaparin 80 mg/0.8 mL Syringe 70 MG SUBCUT ×2 (02:52→12:54)
--- NOTE | 2021-07-15 03:01 | PC.NURSE ---
Patient lying on right side O2 sats 84 % / O2 55/60. RT notified via secure text message.
[2021-07-15] MEDS: ALPRAZolam 0.5 mg Tablet 0.25 MG PO ×3 (03:17→22:41)
--- NOTE | 2021-07-15 03:26 | PC.NURSE ---
RT in room assessing O2 sat.
[2021-07-15] MEDS: ipratropium-albuterol 3 mL Neb INHALATION ×4 (03:29→20:26)
[2021-07-15] MEDS: acetaminophen 325 mg Tablet 650 MG PO (04:59)
--- NOTE | 2021-07-15 05:09 | PC.NURSE ---
Patient sitting up in bed/ O2 90%. Tylenol administered for c/o of headache.
[2021-07-15] MEDS: lactated ringers 1,000 ML 100 ML IV ×3 (05:15→23:57)
[2021-07-15 05:45] LABS: Basophils % 0.1 %; Hematocrit 37.4 % (42.0-52.0); Hemoglobin 11.9 g/dL (11.7-16.6); Lymphocytes # 1.5 10^3/uL (0.8-4.8); Lymphocytes % 11.3 %; Mean Corpuscular HGB Conc 31.8 g/dL (30.0-36.0); Mean Corpuscular Hemoglobin 29.5 pg (28.0-34.0); Mean Corpuscular Volume 92.6 fl (80-94); Mean Platelet Volume 10.3 fL (7.4-10.4); Monocytes # 1.2 10^3/uL (0.2-0.9); Monocytes % 8.6 %; Neutrophils # 10.57 10^3/uL (1.8-7.7); Neutrophils % 78.7 %; Nucleated Red Blood Cells % 0 %; Platelet Count 412 10^3/cmm (130-400); Red Blood Count 4.04 10^6/uL (4.1-5.3); Red Cell Distribution Width 12.9 % (12.1-15.1); White Blood Count 13.4 10^3/uL (4.0-10.0)
[2021-07-15 06:19] LABS: D Dimer >= 20.00 ug/mIFEU (0-0.59)
--- NOTE | 2021-07-15 07:56 | PC.NURSE ---
Call light answered by this nurse. Patient requesting something to drink. Ice water taken to patient at this time. Patient then states he was suppose to be given a telephone for his room but it has yet to happen. This nurse left room and returned with telephone to plug in to wall. Patient picked up phone and attempted to make a phone call. Once patient was unable to make call patient told this nurse that The fucking phone was no good if it couldn't make phone calls . This nurse attempted to help patient make phone call. Patient then became outraged again and called nurse chemo bustos idiotic bitch . This nurse asked patient how this nurse was being one if author was only trying to help patient make phone call. Patient then states he would like to sign papers to leave hospital at this time Dr. Leo notified at this time via telephone of patient stating he was leaving A. Doctor stated he would be up as soon as possible to speak with patient. Respiratory then notified via telephone per doctor request. RT states she will be up as soon as she was finished with treatment. Patient updated of all information given.
[2021-07-15] MEDS: pantoprazole DR 40 mg Tablet PO (08:47)
[2021-07-15] MEDS: dexamethasone 10 mg/mL INJ 6 MG IVP (10:26)
[2021-07-15] MEDS: remdesivir 100 MG in sodium chloride 0.9% (100 ml) 80 ML IV (17:16)
--- NOTE | 2021-07-15 20:29 | PM.PN ---
Subjective Subjective: Interval history: This morning very upset stating that he does not want to prone, stating he does not know what is going on, requesting for discharge. Discussed with him that as per prior discussions he is being treated for respiratory failure secondary to severe COVID-19, ARDS, as well as PE. Discussed current high oxygen requirement, which she was unachievable at this time at home, and discharge at this time would be risking a fatal outcome. Discussed with him that he certainly does not have to force himself to self prone. This may be beneficial if he is able to go possibly on his side as had been discussed several days back, however, it is definitely not mandatory. Discussed with him plans for continued therapy with Decadron, remdesivir, baricitinib which was initiated yesterday as well as per discussion. He seems to recall all this upon discussion. Seems he has been getting anxious. Discussed with him hypoxia certainly can be triggered anxiety complaints he states he has had issues with anxiety in the past which was unresponsive to buspirone. Discussed that we may additionally treat with Xanax for episodes of anxiety to which he is agreeable. Vitals/I&O/Wt Last Vital Signs Temp 98.2 F 07/15/21 16:00 Pulse 88 07/15/21 20:24 Resp 20 H 07/15/21 20:24 BP 124/79 07/15/21 16:00 Pulse Ox 91 07/15/21 20:24 07/15/21 07/15/21 07/15/21 06:59 14:59 22:59 Intake Total 886.667 / 3925.000 720 / 720 1100 / 1820 Output Total 800 / 4375 2550 / 2550 600 / 3150 Balance 86.667 / -450.000 -1830 / -1830 500 / -1330 Weight last 48 hrs Weight 65.516 kg Weight 65.516 kg Physical Exam Const: COMMON NORMALS: no acute distress and patient oriented x3 HENMT: COMMON NORMALS: oropharynx normal Neck/C-Spine: COMMON NORMALS: no JVD Resp: COMMON NORMALS: normal respiratory effort and clear to auscultation bilaterally AUSCULTATION: clear to auscultation bilaterally OTHER: Coarse breath sounds. Cardio: COMMON NORMALS: no JVD, regular rhythm, S1 normal heart sound present, S2 normal heart sound present and No murmurs present (Cardio) RHYTHM: regular rhythm HEART SOUNDS: S1 normal heart sound present and S2 normal heart sound present GI: COMMON NORMALS: Normal to inspection, nondistended, normoactive bowel sounds present, Soft to palpation and non-tender PALPATION: Yes Soft to palpation Extremity: COMMON NORMALS: no joint enlargement and no pedal edema Neuro: COMMON NORMALS: patient oriented x3 and moves all extremities Skin: COMMON NORMALS: no rashes or lesions noted GENERAL SKIN EXAM: no rashes or lesions noted Data : 07/15/21 05:15 07/14/21 05:05 A&P Assessment and plan (1) Acute hypoxemic respiratory failure: This morning low oxygen saturations, but appears in large part due to episodes of anxiety, not cooperating well with oxygen therapy. Doing better in the afternoon. Xanax escalated to 0.25 mg every 4 hours as needed. Monitor, may need to further increase. Continue Decadron, remdesivir, baricitinib. Continue anticoagulation. He is agreeable to continue heated high flow oxygen. Wean down as tolerated. Status: Acute (2) Pulmonary embolism: Continue Lovenox. Monitor hemoglobin. Switch to p.o. anticoagulation prior to discharge. Hemodynamically has been stable. Status: Acute (3) 2019 novel coronavirus-infected pneumonia (NCIP): As above. Status: Acute Additional A&P Information Hematochezia: So far without recurrence. Small amount of blood in the bowl, small amount of tissue paper. Monitor for any worse bleeding as he is requiring anticoagulation currently. Once his condition improves would benefit from additional assessment by colonoscopy. Attestations Medical Necessity Statement*: Continue admission for assessment of management of hypoxic respiratory failure with severe COVID-19. 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
--- NOTE | 2021-07-15 20:52 | PC.NURSE ---
Shift report received from Suma JIN. Patient in bed/awake. O2 45/60. Productive cough. No needs voiced at this time.
[2021-07-16] VITALS (37 sets, daily range): BP systolic 116–156; BP diastolic 83–98; PULSE 65–109; RESP 18–42; TEMP 36.4–36.9; O2SAT 83–99
[2021-07-16] MEDS: acetaminophen 325 mg Tablet 650 MG PO (01:56)
[2021-07-16] MEDS: ipratropium-albuterol 3 mL Neb INHALATION ×3 (03:20→20:23)
[2021-07-16] MEDS: enoxaparin 80 mg/0.8 mL Syringe 70 MG SUBCUT ×2 (04:41→17:03)
[2021-07-16 07:24] LABS: Alanine Aminotransferase 43 U/L (0-41); Albumin Level 3.1 g/dL (3.5-5.2); Alkaline Phosphatase 356 IU/L (40-130); Anion Gap 20.2 (5-19); Aspartate Amino Transferase 30 U/L (0-40); Blood Urea Nitrogen 12 mg/dL (6-20); Calcium 8.2 mg/dL (8.5-10.5); Carbon Dioxide 17 mmol/L (22-29); Chloride 103 mmol/L (98-107); Glomerular Filtration Rate 221.7 mL/min (90-130); Glucose 83 mg/dL (65-115); Osmolality Calculated 281 mOsm/kg (285-295); Potassium 4.2 mmol/L (3.5-5.1); Sodium 136 mmol/L (136-145); Total Bilirubin 0.3 mg/dL (0.15-1.2); Total Protein 6.1 g/dL (6.6-8.7)
[2021-07-16] MEDS: lactated ringers 1,000 ML 100 ML IV (08:18)
[2021-07-16] MEDS: pantoprazole DR 40 mg Tablet PO (08:19)
--- NOTE | 2021-07-16 10:37 | PC.NURSE ---
Collette called this nurse at this time. Update given on patient. expressed thanks and understanding of cares. This nurse did state that if things changed update would be given.
[2021-07-16] MEDS: dexamethasone 10 mg/mL INJ 6 MG IVP (10:46)
[2021-07-16 12:07] LABS: Basophils % 0.1 %; Eosinophils # 0.3 10^3/uL (0.0-0.8); Eosinophils % 2.2 %; Hematocrit 35.9 % (42.0-52.0); Hemoglobin 11.8 g/dL (11.7-16.6); Lymphocytes # 1.9 10^3/uL (0.8-4.8); Lymphocytes % 12.8 %; Mean Corpuscular HGB Conc 32.9 g/dL (30.0-36.0); Mean Corpuscular Volume 91.3 fl (80-94); Mean Platelet Volume 9.6 fL (7.4-10.4); Monocytes # 1.2 10^3/uL (0.2-0.9); Neutrophils # 10.92 10^3/uL (1.8-7.7); Neutrophils % 75.9 %; Nucleated Red Blood Cells % 0 %; Platelet Count 316 10^3/cmm (130-400); Red Blood Count 3.93 10^6/uL (4.1-5.3); White Blood Count 14.4 10^3/uL (4.0-10.0)
--- NOTE | 2021-07-16 14:21 | PC.CHAP ---
Pastoral Care Encounter/Spiritual Assessment Type of Contact [] Declined retail agent visit [xx] Patient Request visit [] Outpatient visit [] Follow-up visit [] Physician referral [] Code/Alert [xx] Routine visit [xx] Staff referral [] Actively dying [] Patient sleeping [] Family support [] [] Out of room [] Palliative care [] [] Receiving care in room [] Pre-surgical visit [] Trauma [] Long length of stay [] ICU visit [xx] Other: covid-19 patient Relational/Emotional Strength [xx] Patient feels connected with others/family/visitors/staff [] Distress [] Loneliness/isolation [] Abandonment Spirituality of Patient [xx] Person of Krista [] Attends Mandaen of their Krista [xx] Believes in Prayer [] Reads Bible or Pentecostalism materials [xx] There are Spiritual issues to be addressed Ship Steward Interventions [xx] Prayer [xx] Active listening [xx] Non-anxious presence [xx] Spiritual/emotional support [] Crisis/trauma care [xx] Spiritual counseling [] Bereavement support [] Provided bereavement packet [] Provided Bible/devotional materials [] Provided toy/stuffed animal, coloring book to patient or family member [] Provided Communion [] Anointing/[place] [XX] Salvation [xx] Completed spiritual assessment [] Other: Impact on Illness or Injury [] Angry [] Fearful [] Anxious [] Often cries [] Exhaustion [] Unable to work [] Unable to attend methodist [] Unable to walk/stand [] Unable to read [] Unable to drive [] Unable to eat/drink [] Unable to sleep [] Unable to be with family [] Patient intubated [xx] Other: isolation due to Covid-19 Summary Patient asked nurse to get retail agent for him. Ship Steward arrived to find that patient wanted to know how to get saved and retail agent to explain the process and help him pray the right way. After short discussion, he started with Lord's Prayer and then prayed a sinner's prayer led by the retail agent. Further discussion ensued. Ship Steward gave patient New Testament with Psalms and recommended he read the book of Misha first, then Juan [address] then continue reading any Psalm of choice and any other book in the New Testament. He asked retail agent to find nurse to get him a glass of water. Ship Steward spoke to nurse and since I was still suited up in [facility], I took water back to him. He was already reading the Bible and felt much better about choosing salvation. Time spent with patient 10 minutes total.
--- NOTE | 2021-07-16 16:14 | XRR_ITS ---
PROCEDURE INFORMATION: Exam: XR Chest Exam date and time: 07/16/2021 4:14 PM Age: 55 years old Clinical indication: Shortness of breath; Patient HX: SOB, covid; Additional info: Hypoxia TECHNIQUE: Imaging protocol: XR of the chest. Views: 1 view. COMPARISON: CR XR chest 1V portable [id number] 07/12/2021 12:23 PM FINDINGS: Lungs: Ill-defined opacities again noted within both lungs most conspicuous in the mid and lower lungs. There has been some interval improvement from most recent comparison. Pleural spaces: Unremarkable. No pleural effusion. No pneumothorax. Heart/Mediastinum: Stable heart size. Bones/joints: Unremarkable. XR/XR chest 1V portable [id number] IMPRESSION: Redemonstrated sequela of COVID pneumonia, with some interval improvement of the pulmonary opacities from most recent comparison.
[2021-07-16] MEDS: levoFLOXacin 750 mg Tablet PO (17:02)
[2021-07-16] MEDS: remdesivir 100 MG in sodium chloride 0.9% (100 ml) 80 ML IV (17:03)
[2021-07-16] MEDS: FUROsemide 10 mg/mL SDV 2mL 20 MG IVP (17:03)
[2021-07-16] MEDS: ALPRAZolam 0.5 mg Tablet 0.25 MG PO (17:12)
--- NOTE | 2021-07-16 19:26 | P.PN_ITS ---
Subjective Subjective: Interval history: This morning significantly worsened FiO2 requirement, up to 100% on heated high flow, additionally nonrebreather placed on top. As per discussion with him with noted inability to reach target flow alarms on heated high flow he reports history of severe deviated septum. Does appear he gets majority of his option at through his mouth. We tried high flow cannula in his mouth temporarily, this works on and off, but not when he bites down on it. He also pulls it down when he tries to talk. So we discussed with him continued his double device support with heated high flow to allow for humidified oxygen and air in addition to nonrebreather. Discussed consideration of intubation and mechanical ventilation given worsening of oxygenation. Vitals/I&O/Wt Last Vital Signs Temp 97.6 F 07/16/21 18:09 Pulse 109 H 07/16/21 18:06 Resp 24 H 07/16/21 18:06 BP 125/98 07/16/21 18:00 Pulse Ox 89 L 07/16/21 18:06 07/16/21 07/16/21 07/16/21 06:59 14:59 22:59 Intake Total 1738.333 / 3558.333 835 / 835 100 / 935 Output Total 1800 / 5800 1300 / 1300 550 / 1850 Balance -61.667 / -2241.667 -465 / -465 -450 / -915 Weight last 48 hrs Weight 64.002 kg Weight 65.516 kg Physical Exam Const: COMMON NORMALS: no acute distress and patient oriented x3 GENERAL APPEARANCE: anxious HENMT: COMMON NORMALS: oropharynx normal Neck/C-Spine: COMMON NORMALS: no JVD Resp: COMMON NORMALS: normal respiratory effort and clear to auscultation bilaterally AUSCULTATION: clear to auscultation bilaterally Cardio: COMMON NORMALS: no JVD, regular rhythm, S1 normal heart sound present, S2 normal heart sound present and No murmurs present (Cardio) RHYTHM: regular rhythm HEART SOUNDS: S1 normal heart sound present and S2 normal heart sound present GI: COMMON NORMALS: Normal to inspection, nondistended, normoactive bowel sounds present, Soft to palpation and non-tender PALPATION: Yes Soft to palpation Extremity: COMMON NORMALS: no joint enlargement and no pedal edema Neuro: COMMON NORMALS: patient oriented x3 and moves all extremities Skin: COMMON NORMALS: no rashes or lesions noted GENERAL SKIN EXAM: no rashes or lesions noted Data : 07/16/21 11:46 07/16/21 05:22 A&P Assessment and plan (1) Acute hypoxemic respiratory failure: Some difficulties to achieve good oxygenation with heated high flow cannula likely secondary to severely deviated septum, we tried a number of options and the best appears to be continuing on dual device currently with superimposed nonrebreather. Stop IVF and given a dose of Lasix also. With increasing oxygen requirement, discussed with him if not improving would proceed with intubation mechanical ventilation, discussed risks of procedure, as well as risks associated with mechanical insulation, including pneumonia, pneumothorax, difficulty weaning, encephalopathy, neuropathy, other complications, to which he verbalized understanding. Discussed with him that duration of mechanical inflation would be unknown, and ventilation and self is not a treatment, would not guarantee recovery given also severity of his condition, but would help support oxygenation during recovery of his lungs. He is otherwise wanting to continue current therapy regimen with Decadron, remdesivir, baricitinib. Continue anticoagulation. Empirically add Levaquin given some persistence of leukocytosis, although this is more likely steroid- induced. Continue anxiolytics. Status: Acute (2) Pulmonary embolism: Continue Lovenox. Monitor hemoglobin. Switch to p.o. anticoagulation prior to discharge. Hemodynamically has been stable. Has been receiving IV fluids. Stop IVF, given a dose of Lasix. Status: Acute (3) 2019 novel coronavirus-infected pneumonia (NCIP): As above. Status: Acute Additional A&P Information Hematochezia: So far without recurrence. Small amount of blood in the bowl, small amount of tissue paper. Monitor for any worse bleeding as he is requiring anticoagulation currently. Once his condition improves would benefit from additional assessment by colonoscopy. Attestations Medical Necessity Statement*: Continue admission for hypoxic respiratory failure with severe COVID-19. Critical Care Time: The high probability of a clinically significant, sudden or life threatening deterioration of the patient's respiratory system(s) required my full and direct attention, intervention and personal management. The critical care time is as shown. 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
[2021-07-17] VITALS (71 sets, daily range): BP systolic 105–162; BP diastolic 75–106; PULSE 61–116; RESP 17–45; TEMP 36.3–36.6; O2SAT 83–99
[2021-07-17] MEDS: enoxaparin 80 mg/0.8 mL Syringe 70 MG SUBCUT ×2 (03:47→14:38)
[2021-07-17 04:05] LABS: Basophils % 0.1 %; Eosinophils # 0.1 10^3/uL (0.0-0.8); Eosinophils % 0.5 %; Hemoglobin 11.3 g/dL (11.7-16.6); Lymphocytes # 2.3 10^3/uL (0.8-4.8); Lymphocytes % 20.3 %; Mean Corpuscular HGB Conc 33.2 g/dL (30.0-36.0); Mean Corpuscular Hemoglobin 30.3 pg (28.0-34.0); Mean Corpuscular Volume 91.2 fl (80-94); Mean Platelet Volume 10.1 fL (7.4-10.4); Monocytes % 9.1 %; Neutrophils # 7.66 10^3/uL (1.8-7.7); Neutrophils % 68.7 %; Nucleated Red Blood Cells % 0 %; Platelet Count 311 10^3/cmm (130-400); Red Blood Count 3.73 10^6/uL (4.1-5.3); Red Cell Distribution Width 13.1 % (12.1-15.1); White Blood Count 11.2 10^3/uL (4.0-10.0)
[2021-07-17 04:28] LABS: Alanine Aminotransferase 43 U/L (0-41); Albumin Level 2.8 g/dL (3.5-5.2); Alkaline Phosphatase 316 IU/L (40-130); Anion Gap 19.9 (5-19); Aspartate Amino Transferase 23 U/L (0-40); Blood Urea Nitrogen 16 mg/dL (6-20); Calcium 8.6 mg/dL (8.5-10.5); Carbon Dioxide 19 mmol/L (22-29); Chloride 101 mmol/L (98-107); Globulin 3.4 g/dL (1.3-4.6); Glomerular Filtration Rate 221.7 mL/min (90-130); Glucose 83 mg/dL (65-115); Osmolality Calculated 282 mOsm/kg (285-295); Potassium 3.9 mmol/L (3.5-5.1); Sodium 136 mmol/L (136-145); Total Bilirubin 0.3 mg/dL (0.15-1.2); Total Protein 6.2 g/dL (6.6-8.7)
[2021-07-17] MEDS: pantoprazole DR 40 mg Tablet PO (08:08)
[2021-07-17] MEDS: ipratropium-albuterol 3 mL Neb INHALATION ×3 (08:09→20:53)
[2021-07-17] MEDS: ALPRAZolam 0.5 mg Tablet 0.25 MG PO ×3 (08:29→21:41)
[2021-07-17] MEDS: dexamethasone 10 mg/mL INJ 6 MG IVP (12:13)
--- NOTE | 2021-07-17 16:41 | P.PN_ITS ---
Subjective Subjective: Interval history: Had an episode of anxiety this morning, felt that there were too many people but is doing better after Xanax. He seems to be better able to recognize an episode of anxiety. Is agreeable to continue medications to help with additional episodes. Would be agreeable for Precedex drip if needed. He is more comfortable today. Vitals/I&O/Wt Last Vital Signs Temp 97.6 F 07/17/21 15:19 Pulse 88 07/17/21 16:00 Resp 24 H 07/17/21 16:00 BP 119/89 07/17/21 16:00 Pulse Ox 94 07/17/21 16:00 07/17/21 07/17/21 07/17/21 06:59 14:59 22:59 Intake Total 1480 / 2415 480 / 480 Output Total 600 / 3650 500 / 500 Balance 880 / -1235 -20 / -20 Weight last 48 hrs Weight 64.002 kg Physical Exam Const: COMMON NORMALS: no acute distress, patient oriented x3 and alert GENERAL APPEARANCE: cooperative and comfortable ORIENTATION/CONSCIOUSNESS: Yes awake HENMT: COMMON NORMALS: oropharynx normal Neck/C-Spine: COMMON NORMALS: no JVD Resp: COMMON NORMALS: normal respiratory effort AUSCULTATION: wheezes Cardio: COMMON NORMALS: no JVD, regular rhythm, S1 normal heart sound present, S2 normal heart sound present and No murmurs present (Cardio) RHYTHM: regular rhythm HEART SOUNDS: S1 normal heart sound present and S2 normal heart sound present GI: COMMON NORMALS: Normal to inspection, nondistended, normoactive bowel sounds present, Soft to palpation and non-tender PALPATION: Yes Soft to palpation Extremity: COMMON NORMALS: no joint enlargement and no pedal edema Neuro: COMMON NORMALS: patient oriented x3 and moves all extremities SENSORIUM/ORIENTATION: Yes alert Skin: COMMON NORMALS: no rashes or lesions noted GENERAL SKIN EXAM: no rashes or lesions noted Data : 07/17/21 03:15 07/17/21 03:15 Micro: Microbiology 07/12/21 13:55 Blood Culture - Final Blood NO GROWTH AFTER 5 DAYS 07/12/21 12:25 Blood Culture - Final Blood NO GROWTH AFTER 5 DAYS A&P Assessment and plan (1) Acute hypoxemic respiratory failure: Episodes of anxiety responding well to Xanax. Ordered as needed Ativan as well in case needing faster onset. He would be agreeable to Precedex drip if needed. Currently persistent hypoxia, but doing slightly better today. Cooperative with oxygen. FiO2 requirement 95% with heated high flow cannula alone. Some improvement in opacities on chest x-ray last night. Has currently is more comfortable, continue current therapy, but may still end up requiring intubation mechanical ventilation over the next several days. Continue Decadron, remdesivir, baricitinib. Continue anticoagulation. Empiric Levaquin given some persistence of leukocytosis, although this is more likely steroid-induced. Leukocytosis better today. Continue anxiolytics. Cough suppressants. Status: Acute (2) Pulmonary embolism: Continue Lovenox. Monitor hemoglobin. Switch to p.o. anticoagulation prior to discharge. Hemodynamically has been stable. Status: Acute (3) 2019 novel coronavirus-infected pneumonia (NCIP): As above. Status: Acute Additional A&P Information Hematochezia: So far without recurrence. Small amount of blood in the bowl, small amount of tissue paper. Monitor for any worse bleeding as he is requiring anticoagulation currently. Once his condition improves would benefit from additional assessment by colonoscopy. Attestations Medical Necessity Statement*: Continue admission for hypoxic respiratory failure with severe COVID-19 and PE. Critical Care Time: The high probability of a clinically significant, sudden or life threatening deterioration of the patient's respiratory system(s) required my full and direct attention, intervention and personal management. The critical care time is as shown. 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
[2021-07-17] MEDS: levoFLOXacin 750 mg Tablet PO (17:16)
[2021-07-17] MEDS: benzonatate 100 mg Capsule PO (21:41)
[2021-07-18] VITALS (63 sets, daily range): BP systolic 83–126; BP diastolic 61–91; PULSE 65–113; RESP 18–53; TEMP 36.3–37.1; O2SAT 84–100
[2021-07-18] MEDS: ipratropium-albuterol 3 mL Neb INHALATION ×4 (02:41→19:59)
--- NOTE | 2021-07-18 02:59 | PC.NURSE ---
No acute changes overnight. Patient resting in bed with eyes closed. No s/s of distress. Call light within reach.
[2021-07-18] MEDS: enoxaparin 80 mg/0.8 mL Syringe 70 MG SUBCUT ×2 (03:06→15:27)
[2021-07-18] MEDS: ALPRAZolam 0.5 mg Tablet 0.25 MG PO ×4 (03:11→21:53)
--- NOTE | 2021-07-18 03:18 | PC.NURSE ---
Shift Note Frequent safety and comfort rounds continue. Orders and/or nursing care completed as indicated. Patient monitored for response to intervention and treatment(s). Education provided includes breathing techniques. Patient and/or in store marketing representative reinforcement needed. Will continue to monitor.
[2021-07-18 05:29] LABS: Basophils % 0.3 %; Eosinophils # 0.2 10^3/uL (0.0-0.8); Eosinophils % 1.4 %; Hematocrit 41.3 % (42.0-52.0); Hemoglobin 13.1 g/dL (11.7-16.6); Lymphocytes # 2.6 10^3/uL (0.8-4.8); Lymphocytes % 21.7 %; Mean Corpuscular HGB Conc 31.7 g/dL (30.0-36.0); Mean Corpuscular Hemoglobin 29.3 pg (28.0-34.0); Mean Corpuscular Volume 92.4 fl (80-94); Mean Platelet Volume 10.2 fL (7.4-10.4); Monocytes # 0.8 10^3/uL (0.2-0.9); Monocytes % 6.6 %; Neutrophils # 7.94 10^3/uL (1.8-7.7); Neutrophils % 67.7 %; Nucleated Red Blood Cells % 0 %; Platelet Count 323 10^3/cmm (130-400); Red Blood Count 4.47 10^6/uL (4.1-5.3); Red Cell Distribution Width 13.2 % (12.1-15.1); White Blood Count 11.7 10^3/uL (4.0-10.0)
[2021-07-18 05:43] LABS: Alanine Aminotransferase 47 U/L (0-41); Albumin Level 2.9 g/dL (3.5-5.2); Alkaline Phosphatase 332 IU/L (40-130); Anion Gap 19.3 (5-19); Aspartate Amino Transferase 21 U/L (0-40); Blood Urea Nitrogen 21 mg/dL (6-20); Calcium 9.4 mg/dL (8.5-10.5); Carbon Dioxide 16 mmol/L (22-29); Chloride 100 mmol/L (98-107); Globulin 3.8 g/dL (1.3-4.6); Glomerular Filtration Rate 221.7 mL/min (90-130); Glucose 98 mg/dL (65-115); Osmolality Calculated 275 mOsm/kg (285-295); Potassium 4.3 mmol/L (3.5-5.1); Sodium 131 mmol/L (136-145); Total Bilirubin 0.3 mg/dL (0.15-1.2); Total Protein 6.7 g/dL (6.6-8.7)
[2021-07-18] MEDS: benzonatate 100 mg Capsule PO ×2 (08:13→14:01)
[2021-07-18] MEDS: pantoprazole DR 40 mg Tablet PO (08:13)
[2021-07-18] MEDS: guaiFENesin-dextromethorphan UDC 10 mL PO ×2 (08:45→14:01)
[2021-07-18] MEDS: dexamethasone 10 mg/mL INJ 6 MG IVP (11:26)
[2021-07-18] MEDS: levoFLOXacin 750 mg Tablet PO (15:27)
[2021-07-18] MEDS: LORazepam 2 mg/mL INJ 1 mL 0.5 MG IVP (15:27)
--- NOTE | 2021-07-18 15:30 | PM.PN ---
Subjective Subjective: Interval history: He is feeling slightly better, but having very persistent/bothersome cough this morning. No chest pain or pressure. No nausea vomiting or diarrhea. Tolerating some breakfast. Vitals/I&O/Wt Last Vital Signs Temp 97.4 F L 07/18/21 03:17 Pulse 106 H 07/18/21 14:00 Resp 24 H 07/18/21 14:00 BP 103/70 07/18/21 14:00 Pulse Ox 94 07/18/21 14:00 07/18/21 07/18/21 07/18/21 06:59 14:59 22:59 Intake Total 240 / 960 480 / 480 Output Total 700 / 1900 250 / 250 Balance -460 / -940 230 / 230 Weight last 48 hrs Weight 60.328 kg Physical Exam Narrative: EXAM NARRATIVE: Up in chair eating oatmeal. Const: COMMON NORMALS: no acute distress, patient oriented x3 and alert GENERAL APPEARANCE: cooperative and comfortable ORIENTATION/CONSCIOUSNESS: Yes awake HENMT: COMMON NORMALS: oropharynx normal Neck/C-Spine: COMMON NORMALS: no JVD Resp: COMMON NORMALS: normal respiratory effort AUSCULTATION: wheezes Cardio: COMMON NORMALS: no JVD, regular rhythm, S1 normal heart sound present, S2 normal heart sound present and No murmurs present (Cardio) RHYTHM: regular rhythm HEART SOUNDS: S1 normal heart sound present and S2 normal heart sound present GI: COMMON NORMALS: Normal to inspection, nondistended, normoactive bowel sounds present, Soft to palpation and non-tender PALPATION: Yes Soft to palpation Extremity: COMMON NORMALS: no joint enlargement and no pedal edema Neuro: COMMON NORMALS: patient oriented x3 and moves all extremities SENSORIUM/ORIENTATION: Yes alert Skin: COMMON NORMALS: no rashes or lesions noted GENERAL SKIN EXAM: no rashes or lesions noted Data : 07/18/21 04:55 07/18/21 04:55 Micro: Microbiology 07/12/21 13:55 Blood Culture - Final Blood NO GROWTH AFTER 5 DAYS 07/12/21 12:25 Blood Culture - Final Blood NO GROWTH AFTER 5 DAYS A&P Assessment and plan (1) Acute hypoxemic respiratory failure: Persistent bouts of cough during which he desaturates. Aggressive cough suppression. Increase scheduled benzonatate. We will add scheduled Robitussin for now. Episodes of anxiety responding well to Xanax. Ordered as needed Ativan as well in case needing faster onset. He would be agreeable to Precedex drip if needed. Showing some gradual improvement on FiO2 requirement. Down to 80% today with 55 L flow on heated cannula. Continue Decadron, remdesivir, baricitinib. Continue anticoagulation. Empiric Levaquin given some persistence of leukocytosis, although this is more likely steroid-induced. Leukocytosis better today. Continue anxiolytics. Cough suppressants. Status: Acute (2) Pulmonary embolism: Continue Lovenox. Monitor hemoglobin. Switch to p.o. anticoagulation prior to discharge. Hemodynamically has been stable. Status: Acute (3) 2019 novel coronavirus-infected pneumonia (NCIP): As above. Status: Acute Additional A&P Information Hematochezia: So far without recurrence. Small amount of blood in the bowl, small amount of tissue paper. Monitor for any worse bleeding as he is requiring anticoagulation currently. Once his condition improves would benefit from additional assessment by colonoscopy. Attestations Medical Necessity Statement*: Continue admission for hypoxic respite failure with severe COVID-19. Coding Level of Care Code Acute Emergency Management Specialist for [facility] Diagnoses Acute hypoxemic respiratory failure J96.01 Pulmonary embolism I26.99 2019 novel coronavirus-infected pneumonia (NCIP) U07.1; J12.82
[2021-07-18] MEDS: guaiFENesin-dextromethorphan UDC 10 mL 5 ML PO (18:09)
[2021-07-18] MEDS: benzonatate 100 mg Capsule 200 MG PO (21:50)
[2021-07-19] VITALS (60 sets, daily range): BP systolic 88–131; BP diastolic 60–90; PULSE 82–114; RESP 20–53; TEMP 37.1; O2SAT 86–100
[2021-07-19 03:47] LABS: Basophils % 0.2 %; Eosinophils # 0.2 10^3/uL (0.0-0.8); Eosinophils % 1.4 %; Hematocrit 37.3 % (42.0-52.0); Hemoglobin 12.3 g/dL (11.7-16.6); Lymphocytes # 2.8 10^3/uL (0.8-4.8); Mean Corpuscular Hemoglobin 29.8 pg (28.0-34.0); Mean Corpuscular Volume 90.3 fl (80-94); Mean Platelet Volume 10.1 fL (7.4-10.4); Monocytes # 0.9 10^3/uL (0.2-0.9); Monocytes % 5.2 %; Neutrophils # 12.82 10^3/uL (1.8-7.7); Neutrophils % 74.8 %; Nucleated Red Blood Cells % 0 %; Platelet Count 402 10^3/cmm (130-400); Red Blood Count 4.13 10^6/uL (4.1-5.3); Red Cell Distribution Width 13.2 % (12.1-15.1); White Blood Count 17.2 10^3/uL (4.0-10.0)
[2021-07-19 04:03] LABS: Alanine Aminotransferase 69 U/L (0-41); Alkaline Phosphatase 334 IU/L (40-130); Anion Gap 17.2 (5-19); Aspartate Amino Transferase 37 U/L (0-40); Blood Urea Nitrogen 23 mg/dL (6-20); Calcium 8.2 mg/dL (8.5-10.5); Carbon Dioxide 19 mmol/L (22-29); Chloride 100 mmol/L (98-107); Globulin 3.1 g/dL (1.3-4.6); Glomerular Filtration Rate 171.4 mL/min (90-130); Glucose 103 mg/dL (65-115); Osmolality Calculated 278 mOsm/kg (285-295); Potassium 4.2 mmol/L (3.5-5.1); Sodium 132 mmol/L (136-145); Total Bilirubin 0.4 mg/dL (0.15-1.2); Total Protein 6.1 g/dL (6.6-8.7)
[2021-07-19] MEDS: guaiFENesin-dextromethorphan UDC 10 mL 5 ML PO ×3 (04:21→17:59)
[2021-07-19] MEDS: ALPRAZolam 0.5 mg Tablet 0.25 MG PO ×4 (04:22→21:09)
[2021-07-19] MEDS: enoxaparin 80 mg/0.8 mL Syringe 70 MG SUBCUT ×2 (04:22→15:42)
--- NOTE | 2021-07-19 04:35 | PC.NURSE ---
No acute changes overnight.
[2021-07-19] MEDS: pantoprazole DR 40 mg Tablet PO (08:06)
[2021-07-19] MEDS: benzonatate 100 mg Capsule 200 MG PO ×3 (08:06→21:09)
[2021-07-19] MEDS: ipratropium-albuterol 3 mL Neb INHALATION ×4 (08:39→20:04)
--- NOTE | 2021-07-19 09:14 | XR_ITS ---
WS: [id number] Portable AP upright chest, 07/19/2021 Clinical Data: follow up pneumonia, inc WBC count Comparison: Portable chest, 07/16/2021. Findings: The bilateral pulmonary opacities throughout the lungs remain the same. The heart is slight ly enlarged. No pneumothorax is seen. There is a large amount of air in the stomach. Monitor leads ar e on the chest wall. XR/XR chest 1V portable [id number] Impression: 1. No change in bilateral pulmonary opacities consistent with pneumonia. 2. Mild cardiomegaly.
--- NOTE | 2021-07-19 09:15 | P.PN_ITS ---
Subjective Subjective: Interval history: Patient states that he feels better today, however still on attempting to complete a conversation. Respiratory rate of 28/min. When seen at bedside he is on 80% FiO2 at 50 L/min oxygen requirement. T-max 98.8 Fahrenheit. Leukocytosis noted to be increasing to 17 today. 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 Data : 07/19/21 02:55 07/19/21 02:55 A&P Assessment and plan (1) Acute hypoxemic respiratory failure: Continues to to have high FiO2 requirements of 80% heated high flow at 50 L/min. 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 Does become significantly tachypneic in conversation. This morning episodes of desaturation to 86% with coughing, however for most part maintaining saturation of around 91%. Tested positive for COVID-19 on 06/23. States he was recommended to undergo monoclonal antibody infusion, however was unable to make the appointment as he felt sick. Symptoms of shortness of breath started about 14 days afterwards.. Status post remdesivir for 5 days between 07 12-07 17 Continue Decadron 6mg IVP q24h, baricitinib day 5 of 14 today. Continue anticoagulation with Lovenox 1mg/kg q12h. Continue anxiolytics. Cough suppressants. Scheduled duoneb q6h and add budesonide 0.5 mg q12h Suspect that increasing leukocytosis to 17 is as a result of systemic steroids. Will repeat chest x-ray to ensure no interim development of bacterial pneumonia. Additionally check blood culture Status: Acute (2) Pulmonary embolism: Continue Lovenox. Hb stable Status: Acute (3) 2019 novel coronavirus-infected pneumonia (NCIP): As above. Status: Acute Additional A&P Information Hematochezia: So far without recurrence. Small amount of blood in the bowl, sm all amount of tissue paper. Monitor for any worse bleeding as he is requiring anticoagulation currently. Once his condition improves would benefit from additional assessment by colonoscopy. Disposition: Suspect that patient's high FiO2 requirements on heated high flow may continue for a while and may need weaning down over the next several weeks. Discussed with him that heated high flow requirements could not be replicated at home. Recommend transfer to LTAC. Patient is agreeable for the same. Attestations Medical Necessity Statement*: Requires continued hospital admission for hypoxic respiratory failure, needs close monitoring, continues to be on heated high flow with high FiO2 requirements Critical Care Time: The high probability of a clinically significant, sudden or life threatening deterioration of the patient's [respiratory] system(s) required my full and direct attention, intervention and personal management. The critical care time is as shown. This time is in addition to time spent perfo rming any reported procedures but includes the following: [x] Data and vital sign review and interpretation [x] Patient assessment, examination and intervention [x] Documentation [x] Medication orders and management Critical Care Time (min): 45 Coding Level of Care Code Acute Spacecraft Systems Engineer for [facility] Diagnoses Acute hypoxemic respiratory failure J96.01 Pulmonary embolism I26.99 2019 novel coronavirus-infected pneumonia (NCIP) U07.1; J12.82
--- NOTE | 2021-07-19 09:26 | PC.CHAP ---
Pastoral Care Encounter/Spiritual Assessment Type of Contact [] Declined broom stitcher visit [] Patient/Family/Request visit [] Outpatient visit [] Follow-up visit [] Physician referral [] Code/Alert [x] Routine visit [] Staff referral [] Actively dying [] Patient sleeping [] Family support [] [] Out of room [] Palliative care [] [] Receiving care in room [] Pre-surgical visit [] Trauma [] Long length of stay [x] ICU visit [] Other: Relational/Emotional Strength [] Patient feels connected with others/family/visitors/staff [] Distress [] Loneliness/isolation [] Abandonment Spirituality of Patient [] Person of Krista [] Attends Alevism of their Krista [] Believes in Prayer [] Reads Bible or Protestant materials [] There are Spiritual issues to be addressed Leather Sorter Interventions [x] Prayer [x] Active listening [x] Non-anxious presence [x] Spiritual/emotional support [] Crisis/trauma care [] Spiritual counseling [] Bereavement support [] Provided bereavement packet [] Provided Bible/devotional materials [] Provided toy/stuffed animal, coloring book to patient or family member [] Provided Communion [] Anointing/[place] [] Salvation [x] Completed spiritual assessment [] Other: Impact on Illness or Injury [] Angry [] Fearful [] Anxious [] Often cries [] Exhaustion [] Unable to work [] Unable to attend scientologist [] Unable to walk/stand [] Unable to read [] Unable to drive [] Unable to eat/drink [] Unable to sleep [] Unable to be with family [] Patient intubated [] Other: Summary prayed for breakfast and strength Time spent with patient 5 min
[2021-07-19] MEDS: dexamethasone 10 mg/mL INJ 6 MG IVP (12:55)
[2021-07-19] MEDS: levoFLOXacin 750 mg Tablet PO (15:40)
[2021-07-19] MEDS: budesonide 0.5 mg/2 mL Neb INHALATION (19:56)
[2021-07-20] VITALS (54 sets, daily range): BP systolic 92–133; BP diastolic 65–95; PULSE 82–110; RESP 20–46; TEMP 36.7; O2SAT 78–100
[2021-07-20] MEDS: ipratropium-albuterol 3 mL Neb INHALATION ×3 (02:07→22:40)
[2021-07-20] MEDS: guaiFENesin-dextromethorphan UDC 10 mL 5 ML PO ×3 (02:35→18:09)
[2021-07-20] MEDS: ALPRAZolam 0.5 mg Tablet 0.25 MG PO ×3 (02:35→12:44)
[2021-07-20] MEDS: enoxaparin 80 mg/0.8 mL Syringe 70 MG SUBCUT ×2 (02:35→15:20)
[2021-07-20 05:20] LABS: Alanine Aminotransferase 107 U/L (0-41); Alkaline Phosphatase 336 IU/L (40-130); Aspartate Amino Transferase 42 U/L (0-40); Blood Urea Nitrogen 21 mg/dL (6-20); Calcium 8.2 mg/dL (8.5-10.5); Carbon Dioxide 17 mmol/L (22-29); Chloride 100 mmol/L (98-107); Globulin 3.3 g/dL (1.3-4.6); Glomerular Filtration Rate 171.4 mL/min (90-130); Glucose 113 mg/dL (65-115); Osmolality Calculated 276 mOsm/kg (285-295); Sodium 131 mmol/L (136-145); Total Bilirubin 0.3 mg/dL (0.15-1.2); Total Protein 6.3 g/dL (6.6-8.7)
[2021-07-20 05:31] LABS: Anion Gap 18.5 (5-19); Potassium 4.5 mmol/L (3.5-5.1)
[2021-07-20 05:40] LABS: Basophils % 0.2 %; Eosinophils # 0.1 10^3/uL (0.0-0.8); Hematocrit 38.6 % (42.0-52.0); Hemoglobin 12.6 g/dL (11.7-16.6); Lymphocytes # 1.9 10^3/uL (0.8-4.8); Lymphocytes % 18.1 %; Mean Corpuscular HGB Conc 32.6 g/dL (30.0-36.0); Mean Corpuscular Hemoglobin 29.6 pg (28.0-34.0); Mean Corpuscular Volume 90.8 fl (80-94); Mean Platelet Volume 9.9 fL (7.4-10.4); Monocytes # 0.7 10^3/uL (0.2-0.9); Monocytes % 6.6 %; Neutrophils # 7.46 10^3/uL (1.8-7.7); Neutrophils % 70.4 %; Nucleated Red Blood Cells % 0 %; Platelet Count 352 10^3/cmm (130-400); Red Blood Count 4.25 10^6/uL (4.1-5.3); Red Cell Distribution Width 13.4 % (12.1-15.1); White Blood Count 10.6 10^3/uL (4.0-10.0)
--- NOTE | 2021-07-20 05:46 | PC.NURSE ---
No acute changes.
[2021-07-20 06:36] LABS: C Reactive Protein 17.4 mg/L (0.0-4.9)
[2021-07-20] MEDS: budesonide 0.5 mg/2 mL Neb INHALATION ×2 (08:03→22:40)
[2021-07-20] MEDS: benzonatate 100 mg Capsule 200 MG PO ×3 (08:09→20:27)
[2021-07-20] MEDS: pantoprazole DR 40 mg Tablet PO (08:09)
[2021-07-20] MEDS: dexamethasone 10 mg/mL INJ 6 MG IVP (10:59)
[2021-07-20] MEDS: LORazepam 2 mg/mL INJ 1 mL 0.5 MG IVP (14:28)
--- NOTE | 2021-07-20 15:08 | P.PN_ITS ---
Subjective Subjective: Interval history: Oxygen requirement is improving today. Patient is down to 55% FiO2 at 50 L/min from 80% FiO2 yesterday. Still significantly tachypneic with minimal exertion. LFTs noted to be increasing, ALT 107, alkaline phosphatase 336. reports increased epigastric discomfort today. 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 Does become significantly tachypneic in conversation and minimal exertion. Status post remdesivir for 5 days between 07 12-07 17 Continue Decadron 6mg IVP q24h Currently on baricitinib day 6 of 14 today. LFTs trending up, AST mildly up at 42, ALT 100, will continue to monitor, if uptrending in the next 24 hrs, will need to d/c baricitinib. Continue anticoagulation with Lovenox 1mg/kg q12h. Continue anxiolytics. Cough suppressants. Scheduled duoneb q6h and add budesonide 0.5 mg q12h Status: Acute (2) Pulmonary embolism: Continue Lovenox. Hb stable Status: Acute (3) 2019 novel coronavirus-infected pneumonia (NCIP): As above. Status: Acute Plan dispo planning: Likely transition to LTAC, may need weaning of high 02 requirements over next several days to weeks with close monitoring of resp status, likely to be best achieved at LTAC Attestations Medical Necessity Statement*: needs ongoing hospital admission for hypoxic resp failure from COVID pneumonia, high 02 requirements which cannot be replicated ta home Critical Care Time: The high probability of a clinically significant, sudden or life threatening deterioration of the patient's [respiratory] system(s) required my full and direct attention, intervention and personal management. The critical care time is as shown. This time is in addition to time spent performing any reported procedures but includes the following: [x] Data and vital sign review and interpretation [x] Patient assessment, examination and intervention [x] Documentation [x] Medication orders and management Critical Care Time (min): 40 Coding Level of Care Code Acute General Cargo Clerk for [facility] Diagnoses Acute hypoxemic respiratory failure J96.01 Pulmonary embolism I26.99 2019 novel coronavirus-infected pneumonia (NCIP) U07.1; J12.82
[2021-07-20] MEDS: levoFLOXacin 750 mg Tablet PO (15:20)
[2021-07-20] MEDS: guaiFENesin-dextromethorphan UDC 10 mL PO (16:00)
[2021-07-21] VITALS (59 sets, daily range): BP systolic 90–131; BP diastolic 62–90; PULSE 78–108; RESP 18–42; O2SAT 85–944
[2021-07-21] MEDS: guaiFENesin-dextromethorphan UDC 10 mL 5 ML PO ×3 (02:33→21:42)
[2021-07-21] MEDS: enoxaparin 80 mg/0.8 mL Syringe 70 MG SUBCUT (02:33)
[2021-07-21] MEDS: ipratropium-albuterol 3 mL Neb INHALATION ×3 (03:31→14:01)
[2021-07-21 03:50] LABS: Basophils % 0.3 %; Eosinophils # 0.2 10^3/uL (0.0-0.8); Eosinophils % 1.4 %; Hematocrit 39.4 % (42.0-52.0); Hemoglobin 12.9 g/dL (11.7-16.6); Lymphocytes # 2.3 10^3/uL (0.8-4.8); Lymphocytes % 21.4 %; Mean Corpuscular HGB Conc 32.7 g/dL (30.0-36.0); Mean Corpuscular Hemoglobin 29.1 pg (28.0-34.0); Mean Corpuscular Volume 88.9 fl (80-94); Mean Platelet Volume 9.9 fL (7.4-10.4); Monocytes # 0.7 10^3/uL (0.2-0.9); Monocytes % 6.8 %; Neutrophils # 7.21 10^3/uL (1.8-7.7); Neutrophils % 66.9 %; Nucleated Red Blood Cells % 0 %; Platelet Count 429 10^3/cmm (130-400); Red Blood Count 4.43 10^6/uL (4.1-5.3); Red Cell Distribution Width 13.3 % (12.1-15.1); White Blood Count 10.8 10^3/uL (4.0-10.0)
[2021-07-21 04:06] LABS: Alanine Aminotransferase 96 U/L (0-41); Albumin Level 3.2 g/dL (3.5-5.2); Alkaline Phosphatase 304 IU/L (40-130); Anion Gap 17.6 (5-19); Aspartate Amino Transferase 28 U/L (0-40); Blood Urea Nitrogen 21 mg/dL (6-20); Calcium 9.4 mg/dL (8.5-10.5); Carbon Dioxide 18 mmol/L (22-29); Chloride 100 mmol/L (98-107); Globulin 3.5 g/dL (1.3-4.6); Glomerular Filtration Rate 171.4 mL/min (90-130); Glucose 106 mg/dL (65-115); Osmolality Calculated 275 mOsm/kg (285-295); Potassium 4.6 mmol/L (3.5-5.1); Sodium 131 mmol/L (136-145); Total Bilirubin 0.4 mg/dL (0.15-1.2); Total Protein 6.7 g/dL (6.6-8.7)
[2021-07-21 04:35] LABS: Hepatitis A Antibody IgM Non-Reactive (Nonreactive); Hepatitis B Core AB, Total Non-Reactive (Nonreactive); Hepatitis B Surface AB 3.5 (11.5-1000); Hepatitis B Surface Antigen Non-Reactive (Nonreactive); Hepatitis C Virus Antibody Non-Reactive (Nonreactive)
--- NOTE | 2021-07-21 06:00 | US_ITS ---
WS: [id number] RIGHT UPPER QUADRANT ULTRASOUND HISTORY: transaminitis, abdominal bloating COMPARISON: None available. Liver: 17.0 cm in length. Normal size liver. No bile duct dilatation or mass. Portal Vein: Normal hepatopetal flow with monophasic waveform. Gallbladder: Normally distended gallbladder with no stones or wall thickening. CBD: 0.4 cm Pancreas: Not visualized. Completely obscured by bowel gas. Right kidney: 11.2 cm in length. Normal size and echogenicity. No hydronephrosis or mass. Aorta and IVC: Not visualized. No ascites. US/US liver [id number] IMPRESSION: 1. Normal gallbladder. 2. Nonvisualization of the pancreas, aorta and IVC due to bowel gas and body h abitus.
--- NOTE | 2021-07-21 06:31 | PC.NURSE ---
Shift Note Frequent safety and comfort rounds continue. Orders and/or nursing care completed as indicated. Patient monitored for response to intervention and treatment(s). Education provided includes[Oxygen]. Patient and/or dental sales representative [reported understanding]. Will continue to monitor. Non eventful night, no c/o reported to this nurse
[2021-07-21] MEDS: budesonide 0.5 mg/2 mL Neb INHALATION (08:16)
[2021-07-21] MEDS: ALPRAZolam 0.5 mg Tablet 0.25 MG PO ×3 (08:56→19:24)
--- NOTE | 2021-07-21 10:30 | PC.CHAP ---
Pastoral Care Encounter/Spiritual Assessment Type of Contact [] Declined icu specialist visit [] Patient/Family/Request visit [] Outpatient visit [] Follow-up visit [] Physician referral [] Code/Alert [x] Routine visit [] Staff referral [] Actively dying [] Patient sleeping [] Family support [] [] Out of room [] Palliative care [] [] Receiving care in room [] Pre-surgical visit [] Trauma [] Long length of stay [x] ICU visit [] Other: Relational/Emotional Strength [] Patient feels connected with others/family/visitors/staff [] Distress [] Loneliness/isolation [] Abandonment Spirituality of Patient [] Person of Kritsa [] Attends Baptism of their Krista [] Believes in Prayer [] Reads Bible or Muslim materials [] There are Spiritual issues to be addressed Technical Sme Interventions [x] Prayer [x] Active listening [x] Non-anxious presence [x] Spiritual/emotional support [] Crisis/trauma care [] Spiritual counseling [] Bereavement support [] Provided bereavement packet [] Provided Bible/devotional materials [] Provided toy/stuffed animal, coloring book to patient or family member [] Provided Communion [] Anointing/[place] [] Salvation [x] Completed spiritual assessment [] Other: Impact on Illness or Injury [] Angry [] Fearful [] Anxious [] Often cries [] Exhaustion [] Unable to work [] Unable to attend shinto [] Unable to walk/stand [] Unable to read [] Unable to drive [] Unable to eat/drink [] Unable to sleep [] Unable to be with family [] Patient intubated [] Other: Summary patient feeling stronger.... Time spent with patient 5 min
[2021-07-21] MEDS: dexamethasone 10 mg/mL INJ 6 MG IVP (11:53)
[2021-07-21] MEDS: calcium carbonate 500 mg Chew Tablet PO ×2 (13:41→17:08)
--- NOTE | 2021-07-21 14:26 | PC.NURSE ---
PT was very agitated this AM yelling at staff stating, im not getting up in a fucking chair all day long again. He continued to yell and cuss at staff. Dr. Farmer aware and spoke to patient about medications and disease process. PRN medication given
--- NOTE | 2021-07-21 15:14 | PM.PN ---
Subjective Subjective: Interval history: Making slow steady progress. FiO2 down to 45% today. Having some side effects from the steroids likely, including dyspepsia LFTs are stable today. AST normalized at 28. ALT at 96 today. Normal gallbladder and liver on ultrasound imaging. Negative hepatitis screen. He was upset this morning, unhappy with food, still being critically ill in the ICU, his illness etc. 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 Status post remdesivir for 5 days between 07 12-07 17 Continue Decadron 6mg IVP q24h day 10 today. Currently on baricitinib day 7 of 14 today. LFTs stabilized today. AST normalized at 28. ALT trending down in the 90s. If LFTs deranged again, will likely need to discontinue baricitinib due to concerns for hepatotoxicity. Currently on anticoagulation with Lovenox 1mg/kg q12h---> changed to Eliquis 10 mg p.o. twice daily today Continue anxiolytics. Cough suppressants. Scheduled duoneb q6h and add budesonide 0.5 mg q12h Patient was upset this morning regarding his food, being in the ICU, general deconditioning from his illness. Explained to him that irritability, dyspepsia are potentially explained with high-dose steroids as he is receiving currently, however weighing the risk benefit ratio would be prudent to continue with the high-dose steroids. He acknowledges understanding of the situation. He is amenable to trying anxiolytics today. Protonix has been increased to 40 mg p.o. twice daily. Additionally Tums have been added to his regimen as needed. Will obtain abdominal x-ray to evaluate for possible ileus contributing. Last bowel movement was this morning. Passing flatus. Add bowel regimen with Senna Lax and pen lactulose Status: Acute (2) Pulmonary embolism: change lovenox to Eliquis today Status: Acute (3) 2019 novel coronavirus-infected pneumonia (NCIP): As above. Status: Acute Plan dispo planning: Likely transition to LTAC, may need weaning of high 02 requirements over next several days to weeks with close monitoring of resp status, recovery from deconditioing, likely to be best achieved at LTAC Discontinue isolation precautions . Positive test date : 06/23. currently inpatient since 07/12 Attestations Medical Necessity Statement*: hypoxic resp failure needing high oxygen supplementation Coding Level of Care Code Acute Home Demonstration Agent for [facility] Diagnoses Acute hypoxemic respiratory failure J96.01 Pulmonary embolism I26.99 2019 novel coronavirus-infected pneumonia (NCIP) U07.1; J12.82
--- NOTE | 2021-07-21 15:15 | XR_ITS ---
WS: [id number] ABDOMEN 1 VIEW(S) HISTORY: evaluate for ileus COMPARISON: None available. Large amount of increased air throughout the stomach and small bowel. There is a large amount of feca l material throughout the colon. Largest amount of retained fecal material is towards the rectum and RIGHT colon. No transition point is evident. No portal venous air is identified. No bone abnormality. XR/XR abdomen 1V* [id number] IMPRESSION: 1. Diffuse small bowel ileus. Early small bowel obstruction may appear similar . 2. Significant fecal retention and constipation.
[2021-07-21] MEDS: levoFLOXacin 750 mg Tablet PO (17:08)
[2021-07-21] MEDS: pantoprazole DR 40 mg Tablet PO (17:08)
[2021-07-21] MEDS: sennosides-docusate Tablet 1 TAB PO (17:08)
[2021-07-21] MEDS: apixaban 5 mg Tablet 10 MG PO (21:42)
[2021-07-21] MEDS: benzonatate 100 mg Capsule 200 MG PO (21:42)
[2021-07-22] VITALS (52 sets, daily range): BP systolic 94–123; BP diastolic 67–86; PULSE 85–107; RESP 18–39; TEMP 36.1–37; O2SAT 86–100
[2021-07-22] MEDS: calcium carbonate 500 mg Chew Tablet PO ×2 (00:01→10:17)
[2021-07-22] MEDS: ALPRAZolam 0.5 mg Tablet 0.25 MG PO ×4 (00:05→20:21)
[2021-07-22] MEDS: guaiFENesin-dextromethorphan UDC 10 mL 5 ML PO ×3 (03:18→20:19)
--- NOTE | 2021-07-22 05:30 | PC.NURSE ---
Shift note Frequent safety and comfort rounds continued throughout the shift. Orders and nursing care completed as indicated. Patient monitored for response to intervention and treatment(s). Education provided includes oxygen safety. Patient verbalized understanding. PRN medication for anxiety administered throughout the night at the patient's request. Please see mar for details. Patient's night was uneventful.
[2021-07-22] MEDS: sennosides-docusate Tablet 1 TAB PO ×2 (07:47→17:09)
[2021-07-22] MEDS: pantoprazole DR 40 mg Tablet PO ×2 (07:47→17:09)
[2021-07-22] MEDS: benzonatate 100 mg Capsule 200 MG PO ×3 (07:47→20:21)
[2021-07-22] MEDS: apixaban 5 mg Tablet 10 MG PO ×2 (07:48→20:21)
[2021-07-22 13:39] LABS: Alanine Aminotransferase 95 U/L (0-41); Albumin Level 3.3 g/dL (3.5-5.2); Alkaline Phosphatase 284 IU/L (40-130); Anion Gap 18.7 (5-19); Aspartate Amino Transferase 32 U/L (0-40); Blood Urea Nitrogen 24 mg/dL (6-20); Calcium 9.4 mg/dL (8.5-10.5); Carbon Dioxide 17 mmol/L (22-29); Chloride 98 mmol/L (98-107); Globulin 3.5 g/dL (1.3-4.6); Glomerular Filtration Rate 138.9 mL/min (90-130); Glucose 100 mg/dL (65-115); Osmolality Calculated 274 mOsm/kg (285-295); Potassium 3.7 mmol/L (3.5-5.1); Sodium 130 mmol/L (136-145); Total Bilirubin 0.3 mg/dL (0.15-1.2); Total Protein 6.8 g/dL (6.6-8.7)
[2021-07-22] MEDS: levoFLOXacin 750 mg Tablet PO (15:54)
[2021-07-22] MEDS: dexamethasone 10 mg/mL INJ 6 MG IVP (15:55)
--- NOTE | 2021-07-22 15:55 | P.PN_ITS ---
Subjective Subjective: Interval history: Respiratory status continues to improve today. Oxygen requirements now at 10 L/min via high flow nasal cannula. Still tachypneic with talking. He had re ported abdominal distention yesterday following which an abdominal x-ray was obtained suggestive of ileus and constipation. Patient has since had a large bowel movement today. He is also able to pass flatus. Belly does appear less distended than yesterday and patient states he feels more comfortable. LFTs remain stable. Medications: Reviewed: Yes Vitals/I&O/Wt Last Vital Signs Temp 97.0 F L 07/22/21 08:30 Pulse 100 07/22/21 14:01 Resp 34 H 07/22/21 14:01 BP 96/77 07/22/21 14:01 Pulse Ox 94 07/22/21 14:01 07/22/21 07/22/21 07/22/21 06:59 14:59 22:59 Intake Total 240 / 1270 360 / 360 Output Total 200 / 1110 800 / 800 Balance 40 / 160 -440 / -440 Weight last 48 hrs Weight 60.192 kg Weight 60.781 kg Physical Exam Narrative: EXAM NARRATIVE: GEN: Awake, alert and oriented, no acute distress CVS: S1S2 N RS: CTA B/L Abd: Soft, less distended, bowel sounds heard HYDRAMATIC SPECIALIST: no focal neuro deficits Data : 07/21/21 03:15 07/22/21 12:48 Micro: Microbiology 07/20/21 04:18 Blood Culture - Preliminary Blood NEGATIVE TO DATE Other data: IMPRESSION: ? 1.? Diffuse small bowel ileus. Early small bowel obstruction may appear similar. 2.? Significant fecal retention and constipation. A&P Assessment and plan (1) Acute hypoxemic respiratory failure: Improved oxygen requirement today, down to 10 L/min high flow nasal cannula, saturating 94%. Drops down to 86 to 88% with exertion. This is likely a combination of post Covid complications, likely developing scarring and fibrosis in addition to pulmonary embolism Status post remdesivir for 5 days between 07/12-07/17 Start tapering steroids today. Reduce dexamethasone today to 4 mg IV, if continues to tolerate p.o. intake will change to p.o. prednisone tomorrow Currently on baricitinib day 8 of 14 today. LFTs stabilized today. AST normalized at 28. ALT trending down in the 90s. If LFTs deranged again, will likely need to discontinue baricitinib due to concerns for hepatotoxicity. Currently on anticoagulation with Lovenox 1mg/kg q12h---> changed to Eliquis 10 mg p.o. twice daily on 07/21 Continue anxiolytics. Cough suppressants. Scheduled duoneb q6h and add budesonide 0.5 mg q12h Discontinue levofloxacin as no other evidence of bacterial infection at this time. He has completed a 7-day course empirically Status: Acute (2) Pulmonary embolism: change lovenox to Eliquis today Status: Acute (3) 2019 novel coronavirus-infected pneumonia (NCIP): As above. Status: Acute (4) Ileus: Likely from prolonged hospital admission, constipation. Currently had a large bowel movement this morning, able to pass flatus. Feels more comfortable compared to yesterday, less distended. We will continue conservative management for now. Lactulose daily scheduled added in addition to senna docusate. Encourage ambulation. Status: Acute Plan dispo planning: Likely transition to LTAC, PT OT assessment, patient significantly appears to be deconditioned due to prolonged hospitalization and critical illness. Attestations Medical Necessity Statement*: Improving oxygen requirements today, he was successfully able to be titrated off heated high flow, however still with e pisodes of desaturation, remains on high flow nasal cannula. Coding Level of Care Code Acute Notching Press Operator for Shea Tamayo Diagnoses Acute hypoxemic respiratory failure J96.01 Pulmonary embolism I26.99 2019 novel coronavirus-infected pneumonia (NCIP) U07.1; J12.82 Ileus K56.7
--- NOTE | 2021-07-22 18:13 | PC.NURSE ---
PT was bale to walk with PT with high flow oxygen running at 10-15L.
[2021-07-22] MEDS: budesonide 0.5 mg/2 mL Neb INHALATION (20:22)
[2021-07-22] MEDS: ipratropium-albuterol 3 mL Neb INHALATION (20:22)
[2021-07-23] VITALS (33 sets, daily range): BP systolic 94–122; BP diastolic 68–89; PULSE 78–116; RESP 16–39; TEMP 36.4; O2SAT 77–99
[2021-07-23] MEDS: ALPRAZolam 0.5 mg Tablet 0.25 MG PO ×5 (00:27→20:58)
[2021-07-23] MEDS: calcium carbonate 500 mg Chew Tablet PO (04:38)
[2021-07-23] MEDS: guaiFENesin-dextromethorphan UDC 10 mL 5 ML PO ×3 (04:38→17:02)
--- NOTE | 2021-07-23 05:37 | PC.NURSE ---
Shift note Frequent safety and comfort rounds continued throughout the shift. Orders and nursing care completed as indicated. Patient monitored for response to intervention and treatment(s). Education provided includes the benefits of early mobility. Patient verbalized understanding. PRN medication for anxiety administered throughout the night at the patient's request. Please see mar for details. Patient was angry when lab came to draw blood this morning. He yelled out, I'm tired of being stuck! I don't want it anymore! Patient later agreed to have blood drawn. L upper arm IV found pulled out in the bed. Site dry with no bleeding noted. Patient agreed to allow this nurse to place a new IV. 20g saline lock placed to higher on the L upper arm. Blood return noted and no signs of infiltration when flushed. Overall, patient's night was uneventful.
[2021-07-23 05:51] LABS: Alanine Aminotransferase 87 U/L (0-41); Albumin Level 3.5 g/dL (3.5-5.2); Alkaline Phosphatase 273 IU/L (40-130); Aspartate Amino Transferase 24 U/L (0-40); Blood Urea Nitrogen 24 mg/dL (6-20); Calcium 9.6 mg/dL (8.5-10.5); Carbon Dioxide 17 mmol/L (22-29); Chloride 98 mmol/L (98-107); Globulin 3.4 g/dL (1.3-4.6); Glomerular Filtration Rate 171.4 mL/min (90-130); Glucose 106 mg/dL (65-115); Osmolality Calculated 274 mOsm/kg (285-295); Sodium 130 mmol/L (136-145); Total Bilirubin 0.5 mg/dL (0.15-1.2); Total Protein 6.9 g/dL (6.6-8.7)
[2021-07-23 05:53] LABS: Anion Gap 19.6 (5-19); Potassium 4.6 mmol/L (3.5-5.1)
[2021-07-23] MEDS: budesonide 0.5 mg/2 mL Neb INHALATION ×2 (08:42→21:50)
[2021-07-23] MEDS: ipratropium-albuterol 3 mL Neb INHALATION ×3 (08:42→21:50)
[2021-07-23] MEDS: benzonatate 100 mg Capsule 200 MG PO ×3 (09:17→20:54)
[2021-07-23] MEDS: apixaban 5 mg Tablet 10 MG PO ×2 (09:17→20:54)
[2021-07-23] MEDS: pantoprazole DR 40 mg Tablet PO ×2 (09:18→17:02)
[2021-07-23] MEDS: sennosides-docusate Tablet 1 TAB PO ×2 (09:18→17:02)
[2021-07-23] MEDS: lactulose oral liq 20 gm/30 mL UDC 10 GM PO (09:18)
[2021-07-23] MEDS: dexamethasone 10 mg/mL INJ 4 MG IVP (15:49)
[2021-07-23 16:02] LABS: Basophils % 0.2 %; Eosinophils % 0.3 %; Hematocrit 44.5 % (42.0-52.0); Hemoglobin 14.1 g/dL (11.7-16.6); Lymphocytes # 1.8 10^3/uL (0.8-4.8); Lymphocytes % 19.6 %; Mean Corpuscular HGB Conc 31.7 g/dL (30.0-36.0); Mean Corpuscular Hemoglobin 30.1 pg (28.0-34.0); Mean Corpuscular Volume 95.1 fl (80-94); Mean Platelet Volume 10.5 fL (7.4-10.4); Monocytes # 0.4 10^3/uL (0.2-0.9); Monocytes % 4.9 %; Neutrophils # 6.45 10^3/uL (1.8-7.7); Neutrophils % 72.2 %; Nucleated Red Blood Cells % 0 %; Platelet Count 433 10^3/cmm (130-400); Red Blood Count 4.68 10^6/uL (4.1-5.3); Red Cell Distribution Width 13.5 % (12.1-15.1); White Blood Count 8.9 10^3/uL (4.0-10.0)
--- NOTE | 2021-07-23 16:17 | PM.PN ---
Subjective Subjective: Interval history: Overnight desaturation down to 77%, currently on 4lpm NC, overall oxygen requirements coming down but patient still very tachypneic, deconditioned, ABdominal bloating is improved. Medications: Reviewed: Yes Vitals/I&O/Wt Last Vital Signs Temp 98.6 F 07/22/21 20:01 Pulse 114 H 07/23/21 15:30 Resp 25 H 07/23/21 15:30 BP 119/77 07/23/21 15:30 Pulse Ox 85 L 07/23/21 16:05 07/23/21 07/23/21 07/23/21 06:59 14:59 22:59 Intake Total 240 / 840 480 / 480 Output Total 1250 / 3150 700 / 700 Balance -1010 / -2310 -220 / -220 Weight last 48 hrs Weight 60.146 kg Weight 60.192 kg Physical Exam Narrative: EXAM NARRATIVE: GEN: Awake, alert and oriented, lying in bed, deconditioned, does not wish to work with PT today CVS: S1S2 N RS: CTA B/L Abd: Soft, non distended CREDIT INTERVIEWER: no focal neuro deficits Data : 07/23/21 04:54 07/23/21 04:54 A&P Assessment and plan (1) Acute hypoxemic respiratory failure: Oxygen requirement improving today This is likely a combination of post Covid complications, likely developing scarring and fibrosis in addition to pulmonary embolism Status post remdesivir for 5 days between 07/12-07/17 Start tapering steroids. Change to po prednisone. (iv dex 6mg 07/12-07/23) Currently on baricitinib day 8 of 14 today. LFTs stabilized today. AST normalized at 28. ALT trending down in the 90s. If LFTs deranged again, will likely need to discontinue baricitinib due to concerns for hepatotoxicity. Currently on anticoagulation with Lovenox 1mg/kg q12h---> changed to Eliquis 10 mg p.o. twice daily on 07/21 Continue anxiolytics. Cough suppressants. Scheduled duoneb q6h and add budesonide 0.5 mg q12h Discontinue levofloxacin as no other evidence of bacterial infection at this time. He has completed a 7-day course empirically Status: Acute (2) Pulmonary embolism: change lovenox to Eliquis today Status: Acute (3) 2019 novel coronavirus-infected pneumonia (NCIP): As above. Status: Acute (4) Ileus: Likely from prolonged hospital admission, constipation. Currently had a large bowel movement this morning, able to pass flatus. Feels more comfortable compared to yesterday, less distended. We will continue conservative management for now. Lactulose daily scheduled added in addition to senna docusate. Encourage ambulation. Status: Acute (5) Physical deconditioning: Status: Acute (6) Critical illness myopathy: Status: Acute Plan dispo planning: Declined by LTAC after earlier acceptance today given that patient's oxygen requirements imporved, no longer a candidate for LTAC. Recommend SNF for continued rehab given significant deconditioing prior to discharge home, however patient states he is getting frustrated with prolonged admission and would prefer to return [facility] with maximal home health services incl nursing and PT. He will additionally contact his friends and family members for help and let us know if they are able to help him transition back to home. I did gambling counsellor that discharge home may not be the safest for him given his physical deconditioing and i estimate at least 1-3 months before him being in an independent position again. He acknowldges understanding and will discuss with family and friends. Transfer out of ICU Attestations Medical Necessity Statement*: improving oxygenation though very poor physcial capacity, tachypneic and tired with minimal exertion, disposition planning ongoing. Coding Level of Care Code Acute Marketing Operations Assistant for Shea Tamayo Diagnoses Acute hypoxemic respiratory failure J96.01 Pulmonary embolism I26.99 2019 novel coronavirus-infected pneumonia (NCIP) U07.1; J12.82 Ileus K56.7 Physical deconditioning R53.81 Critical illness myopathy G72.81
--- NOTE | 2021-07-23 16:49 | PC.NURSE ---
pt has safely been transferred up to the floor. he is tucked comfortably in bed. pt does appear to be upset and confused. this nurse has verbally deescalated the situation. physical assessment complete. heart rate sounds to be in sinus rhythm. lungs sound ok; some expiratory wheezes noted and diminished breath sounds in the bilateral lobes. skin looks to be good. will continue to monitor pt.
[2021-07-24] VITALS (13 sets, daily range): BP systolic 107–138; BP diastolic 75–89; PULSE 85–124; RESP 16–22; TEMP 36.4–36.9; O2SAT 89–96; BMI 19.5
--- NOTE | 2021-07-24 04:00 | XRR_ITS ---
PROCEDURE INFORMATION: Exam: XR Chest Exam date and time: 07/24/2021 4:00 AM Age: 55 years old Clinical indication: Shortness of breath; Patient HX: F/u covid pneumonia. Patient non-compliant and verbally combative. Best image submitted. ; Additional info: F/up covid pneumonia TECHNIQUE: Imaging protocol: XR of the chest. Views: 1 view. COMPARISON: CR XR chest 1V portable [id number] 07/19/2021 9:19 AM FINDINGS: Lungs: The right lung apex is not completely within the imaged field of view. There is lucency around the medial portion of the right lung apex and medial right lung suggestive of a possible pneumothorax or artifact. Persistent bilateral pulmonary opacities, increased. Pleural spaces: See Lungs finding. Heart/Mediastinum: No cardiomegaly. Bones/joints: No acute fracture. XR/XR chest 1V portable [id number] IMPRESSION: 1. The right lung apex is not completely within the imaged field of view. There is lucency around the medial portion of the right lung apex and medial right lung suggestive of a possible pneumothorax or artifact. 2. Persistent bilateral pulmonary opacities, increased.
--- NOTE | 2021-07-24 04:00 | XRR_ITS ---
PROCEDURE INFORMATION: Exam: XR Abdomen Exam date and time: 07/24/2021 4:00 AM Age: 55 years old Clinical indication: Bloating; Patient HX: F/u for ileus. Patient non-compliant and verbally combative. Best film submitted. ; Additional info: Follow up ileus TECHNIQUE: Imaging protocol: XR of the abdomen. Views: Frontal supine view of the abdomen. 1 View. COMPARISON: CR XR abdomen 1V* [id number] 07/21/2021 3:21 PM FINDINGS: Gastrointestinal tract: No dilated bowel loops. Bowel gas pattern is nonobstructive. Large amount of stool noted in the rectum. Bones/joints: Unremarkable. XR/XR abdomen 1V* [id number] IMPRESSION: No dilated bowel loops. Bowel gas pattern is nonobstructive. Large amount of stool noted in the rectum.
[2021-07-24] MEDS: ipratropium-albuterol 3 mL Neb INHALATION ×4 (04:25→21:15)
--- NOTE | 2021-07-24 08:04 | XRR_ITS ---
PROCEDURE INFORMATION: Exam: XR Chest Exam date and time: 07/24/2021 8:04 AM Age: 55 years old Clinical indication: Shortness of breath; Additional info: Possible pneumo TECHNIQUE: Imaging protocol: XR of the chest. Views: 1 view. COMPARISON: CR (CHEST, ) 07/24/2021 5:22 AM FINDINGS: Lungs: Are extensive bilateral pulmonary infiltrates especially in the right lung. Pleural spaces: There are stable small bilateral apical pneumothoraces. Heart/Mediastinum: There is a stable pneumo mediastinum along with a small amount of subcutaneous emphysema around the chest. Bones/joints: Unremarkable. XR/XR chest 1V portable [id number] IMPRESSION: 1. Stable small bilateral apical pneumothoraces. 2. Stable pneumo mediastinum and small amount of subcutaneous emphysema around the chest. 3. Stable prominent pulmonary infiltrates especially in the right lung.
[2021-07-24] MEDS: pantoprazole DR 40 mg Tablet PO ×2 (08:47→17:03)
[2021-07-24] MEDS: lactulose oral liq 20 gm/30 mL UDC 10 GM PO (08:47)
[2021-07-24] MEDS: apixaban 5 mg Tablet 10 MG PO ×2 (08:47→20:26)
[2021-07-24] MEDS: guaiFENesin-dextromethorphan UDC 10 mL 5 ML PO ×2 (08:47→17:03)
[2021-07-24] MEDS: sennosides-docusate Tablet 1 TAB PO ×2 (08:47→17:03)
[2021-07-24] MEDS: benzonatate 100 mg Capsule 200 MG PO ×3 (08:47→20:26)
[2021-07-24] MEDS: predniSONE 20 mg Tablet 40 MG PO (08:47)
[2021-07-24] MEDS: ALPRAZolam 0.5 mg Tablet 0.25 MG PO ×2 (08:48→14:32)
[2021-07-24] MEDS: budesonide 0.5 mg/2 mL Neb INHALATION ×2 (09:21→21:15)
--- NOTE | 2021-07-24 15:22 | P.PN_ITS ---
Subjective Subjective: Interval history: Saturating 93% on nasal cannula 5 L/min. Slightly tachycardic at 112/min. This morning was noted to be hypoxic at 89%. Chest x-ray this morning shows bi lateral small apical pneumothoraces and pneumomediastinum along with small amount of subcutaneous emphysema around the chest.changes are new compared to chest x-ray from July 19, 2021. Abdominal x-ray shows nonobstructive bowel gas pattern, large amount of stool in the rectum however ileus appears to have resolved now Medications: Reviewed: Yes Vitals/I&O/Wt Last Vital Signs Temp 98.1 F 07/24/21 07:35 Pulse 112 H 07/24/21 14:33 Resp 20 H 07/24/21 14:28 BP 133/84 07/24/21 11:17 Pulse Ox 93 07/24/21 14:28 07/24/21 07/24/21 07/24/21 06:59 14:59 22:59 Intake Total 150 / 1130 720 / 720 Output Total 150 / 1150 400 / 400 Balance 0 / -20 320 / 320 Weight last 48 hrs Weight 60.146 kg Weight 60.146 kg Physical Exam Narrative: EXAM NARRATIVE: GEN: Awake, alert and oriented, no acute distress CVS: S1S2 N RS: CTA B/L Abd: Soft, nt/nd , bs+ CLINICAL CYTOGENETICIST SCIENTIST: no focal neuro deficits Data : 07/23/21 04:54 07/23/21 04:54 A&P Assessment and plan (1) Acute hypoxemic respiratory failure: Oxygen requirement stable at 5lpm This is likely a combination of post Covid complications, likely developing scarring and fibrosis in addition to pulmonary embolism Status post remdesivir for 5 days between 07/12-07/17 Start tapering steroids. Change to po prednisone. (iv dex 6mg 07/12-07/23) Currently on baricitinib day 8 of 14 today. LFTs stabilized today. AST normalized at 28. ALT trending down in the 90s. If LFTs deranged again, will likely need to discontinue baricitinib due to concerns for hepatotoxicity. Currently on anticoagulation with Lovenox 1mg/kg q12h---> changed to Eliquis 10 mg p.o. twice daily on 07/21 Continue anxiolytics. Cough suppressants. Scheduled duoneb q6h and add budesonide 0.5 mg q12h. He has completed a 7-day course empirically Status: Acute (2) Pulmonary embolism: change lovenox to Eliquis today Status: Acute (3) 2019 novel coronavirus-infected pneumonia (NCIP): As above. Status: Acute (4) Ileus: Likely from prolonged hospital admission, constipation. Now resolved Status: Acute (5) Physical deconditioning: Status: Acute (6) Critical illness myopathy: Status: Acute (7) Pneumothorax: detected to have bilateral small apical pneumothorax and pneumomediastinum, new since July 19, 2021. No signs of tension pneumothorax. Patient otherwise clinically improving with reducing oxygen requirements. We will obtain serial chest x-rays this evening again and tomorrow morning to make sure that pneumothorax is stable. No indication for chest tube at this present time. Status: Acute (8) Pneumomediastinum: Status: Acute Plan dispo planning: Declined by LTAC as down to 5lpm now. Home with HH preferred over SNF by patient. Discussed with his mother with whom he lives- they have additional support at home with family and friends to take care of patient at home. Attestations Medical Necessity Statement*: Pneumothorax and pneumomediastinum interim development which needs to be monitored Coding Level of Care Code Acute Molded Goods Controls Operator for higinio Tamayo Diagnoses Acute hypoxemic respiratory failure J96.01 Pulmonary embolism I26.99 2019 novel coronavirus-infected pneumonia (NCIP) U07.1; J12.82 Ileus K56.7 Physical deconditioning R53.81 Critical illness myopathy G72.81 Pneumothorax J93.9 Pneumomediastinum J98.2
[2021-07-24] MEDS: metoprolol tartrate 25 mg Tablet 12.5 MG PO ×2 (16:18→20:26)
--- NOTE | 2021-07-24 18:00 | XRR_ITS ---
PROCEDURE INFORMATION: Exam: XR Chest Exam date and time: 07/24/2021 6:00 PM Age: 55 years old Clinical indication: Condition or disease; Patient HX: F/u pneumo; Additional info: Follow up pneumothorax and pneumomediastinum TECHNIQUE: Imaging protocol: XR of the chest. Views: 1 view. COMPARISON: CR (CHEST, ) 07/24/2021 8:40 AM FINDINGS: Lungs: Diffuse bilateral pulmonary infiltrates are noted. Pleural spaces: Small bilateral apical pneumothoraces, unchanged. Heart/Mediastinum: Mild pneumomediastinum noted. Bones/joints: Degenerative spine changes are noted. Soft tissues: Soft tissue emphysema noted at the base of the neck and upper thorax. XR/XR chest 1V portable [id number] IMPRESSION: 1. Mild pneumomediastinum noted. 2. Soft tissue emphysema noted at the base of the neck and upper thorax. 3. Small bilateral apical pneumothoraces, unchanged. 4. There is no interval change from the prior examination.
--- NOTE | 2021-07-24 21:57 | PC.NURSE ---
went in comode with bm
[2021-07-25] VITALS (13 sets, daily range): BP systolic 111–142; BP diastolic 79–87; PULSE 81–99; RESP 15–20; TEMP 36.6–36.9; O2SAT 85–95
[2021-07-25] MEDS: guaiFENesin-dextromethorphan UDC 10 mL 5 ML PO ×2 (01:15→12:49)
[2021-07-25] MEDS: ipratropium-albuterol 3 mL Neb INHALATION ×3 (02:41→14:15)
[2021-07-25] MEDS: guaiFENesin-dextromethorphan UDC 10 mL PO ×2 (03:13→15:48)
--- NOTE | 2021-07-25 04:00 | XRR_ITS ---
PROCEDURE INFORMATION: Exam: XR Chest Exam date and time: 07/25/2021 4:00 AM Age: 55 years old Clinical indication: Shortness of breath; Additional info: Follow up b/l pneumothorax and pneumomediastinum TECHNIQUE: Imaging protocol: XR of the chest. Views: 1 view. Total images: 1 COMPARISON: CR XR chest 1V portable [id number] 07/24/2021 6:03 PM FINDINGS: Lungs: Bilateral pulmonary opacities have improved from the prior exam. Pleural spaces: Tiny biapical pneumothoraces unchanged. Heart/Mediastinum: Heart size is stable when compared to the prior exam. Pneumo mediastinum noted and unchanged from prior exam. Bones/joints: Osseous structures are unchanged from the prior exam. Soft tissues: Subcutaneous emphysema in the chest wall and lower neck is again noted and appears unchanged. XR/XR chest 1V portable [id number] IMPRESSION: 1. Pneumomediastinum noted and unchanged from prior exam. 2. Tiny biapical pneumothoraces unchanged. 3. Bilateral pulmonary opacities have improved from the prior exam.
[2021-07-25] MEDS: budesonide 0.5 mg/2 mL Neb INHALATION (09:28)
[2021-07-25] MEDS: benzonatate 100 mg Capsule 200 MG PO ×2 (09:36→14:19)
[2021-07-25] MEDS: pantoprazole DR 40 mg Tablet PO (09:36)
[2021-07-25] MEDS: predniSONE 20 mg Tablet 40 MG PO (09:36)
[2021-07-25] MEDS: lactulose oral liq 20 gm/30 mL UDC 10 GM PO (09:36)
[2021-07-25] MEDS: sennosides-docusate Tablet 1 TAB PO (09:36)
[2021-07-25] MEDS: ALPRAZolam 0.5 mg Tablet 0.25 MG PO (09:52)
[2021-07-25] MEDS: metoprolol tartrate 25 mg Tablet 12.5 MG PO (09:54)
[2021-07-25] MEDS: apixaban 5 mg Tablet 10 MG PO (09:54)
[2021-07-25 11:43] LABS: Alanine Aminotransferase 70 U/L (0-41); Albumin Level 3.6 g/dL (3.5-5.2); Alkaline Phosphatase 257 IU/L (40-130); Anion Gap 18.7 (5-19); Aspartate Amino Transferase 22 U/L (0-40); Blood Urea Nitrogen 23 mg/dL (6-20); Calcium 9.7 mg/dL (8.5-10.5); Carbon Dioxide 21 mmol/L (22-29); Chloride 95 mmol/L (98-107); Globulin 3.3 g/dL (1.3-4.6); Glomerular Filtration Rate 171.4 mL/min (90-130); Glucose 97 mg/dL (65-115); Osmolality Calculated 274 mOsm/kg (285-295); Potassium 4.7 mmol/L (3.5-5.1); Sodium 130 mmol/L (136-145); Total Bilirubin 0.5 mg/dL (0.15-1.2); Total Protein 6.9 g/dL (6.6-8.7)
--- NOTE | 2021-07-25 12:51 | PC.NURSE ---
Dr. Farmer in the room with patient. Ordered me to give patient 10 ml of Guaifenesin Syrup after already scanned and stated wasted 5 ml.
--- NOTE | 2021-07-25 13:04 | P.DS_ITS ---
Discharge Providers Date of Admission: 07/12/21 13:26 Date of Discharge: July 25, 2021 Attending Provider at Admission: Octaviano Rushing Attending Provider at Discharge: Felicia Farmer MD Primary Care Provider: [facility] Diagnoses at Discharge Discharge Diagnosis (1) Acute hypoxemic respiratory failure: Status: Acute (2) Pulmonary embolism: Status: Acute (3) 2019 novel coronavirus-infected pneumonia (NCIP): Status: Acute (4) Ileus: Status: Acute (5) Physical deconditioning: Status: Acute (6) Critical illness myopathy: Status: Acute (7) Pneumothorax: Status: Acute (8) Pneumomediastinum: Status: Acute Reason for Visit Reason for Visit: SOB, COVID Hospital Course Hospital Course 55-year-old gentleman originally diagnosed with COVID-19 on 06/23 returned to the hospital on 07/12 due to severe dyspnea, cough, blood-tinged sputum and was diagnosed with acute hypoxic respiratory failure requiring initially 85% FiO2 by heated high flow cannula.?He received a course of remdesivir for 5 days, high- dose dexamethasone for 10 days, which is now being tapered, baricitinib for 10 days following which his oxygen saturation has improved at this present time where he is requiring 5 to 6 L/min supplemental O2. Additionally also noted to have a PE for which she is currently on Eliquis, transitioned from subcutaneous Lovenox. Hospital course was notable for mild transaminitis, LFTs have since down trended and stabilized. Other pertinent other notable events included development of ileus which is now improving with laxatives. Patient has been tolerating p.o. intake all through. He is having bowel movements and passing flatus. Additionally a day prior to discharge incidentally he was noted to have bilateral small apical pneumothorax and small mediastinal pneumomediastinum. This is of unclear duration. Patient has otherwise continued to clinically improve, down from heated high flow at 80 to 85% to 5 to 6 L/min currently at is time. Serial x-rays were taken over the course of around 24 hours to monitor for any change, however both pneumothorax and pneumomediastinum have remained stable. Cough suppressants have been prescribed. Additionally asked patient not to lift any heavy weights or bear down during defecation. Arrangements were initially made for transfer patient to LTAC, however once patient weaned off of heated high flow, he was declined placement by LTAC. SNF was offered, however patient has elected to return home. He lives with his mother who confirms that she is able to take care of him and they have extra help by way of family and friends. Danger signs of worsening pneumothorax have been explained to the patient. To return to ER immediately in case of any shortness of breath, worsening chest pain, difficulty breathing. Follow-up with pulmonary as outpatient within 1 week.? 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 Discharge Data Studies Completed and Pending Completed Studies During Hospitalization Category Date Time Status CT angio chest PE protcl [id number] Urgent Cat Scan 07/12/21 12:10 Completed CXRP [XR chest 1V portable [id number]] AM LABS Exams 07/24/21 04:00 Completed CXRP [XR chest 1V portable [id number]] AM LABS Exams 07/25/21 04:00 Completed CXRP [XR chest 1V portable [id number]] Routine Exams 07/24/21 18:00 Completed XR abdomen 1V* [id number] AM LABS Exams 07/24/21 04:00 Completed XR abdomen 1V* [id number] Routine Exams 07/21/21 15:15 Completed XR chest 1V portable [id number] Routine Exams 07/16/21 16:14 Completed XR chest 1V portable [id number] Routine Exams 07/19/21 09:14 Completed XR chest 1V portable [id number] Stat Exams 07/12/21 12:08 Completed XR chest 1V portable [id number] Stat Exams 07/24/21 08:04 Completed US liver [id number] Routine Ultrasound 07/21/21 06:00 Completed Pending at discharge Category Date Time Status Blood Culture AM LABS Lab 07/20/21 04:18 Results Radiology Impressions Chest CTA 07/12/21 12:10 IMPRESSION: 1. Suboptimal opacification of pulmonary arteries. Highly suspicious for partial opacification LEFT lower lobe proximal pulmonary artery. 2. Diffuse bilateral opacifications from Covid 19. 3. Indeterminate but probably reactive lymphadenopathy in the mediastinum and hilum. Liver Ultrasound 07/21/21 06:00 IMPRESSION: 1. Normal gallbladder. 2. Nonvisualization of the pancreas, aorta and IVC due to bowel gas and body habitus. Abdomen X-Ray 07/24/21 04:00 IMPRESSION: No dilated bowel loops. Bowel gas pattern is nonobstructive. Large amount of stool noted in the rectum. Chest X-Ray 07/25/21 04:00 IMPRESSION: 1. Pneumomediastinum noted and unchanged from prior exam. 2. Tiny biapical pneumothoraces unchanged. 3. Bilateral pulmonary opacities have improved from the prior exam. Laboratory Results WBC 8.9 10^3/uL (4.0-10.0) 07/23/21 04:54 RBC 4.68 10^6/uL (4.1-5.3) 07/23/21 04:54 Hgb 14.1 g/dL (11.7-16.6) 07/23/21 04:54 Hct 44.5 % (42.0-52.0) 07/23/21 04:54 MCV 95.1 fl (80-94) H 07/23/21 04:54 MCH 30.1 pg (28.0-34.0) 07/23/21 04:54 MCHC 31.7 g/dL (30.0-36.0) 07/23/21 04:54 RDW 13.5 % (12.1-15.1) 07/23/21 04:54 Plt Count 433 10^3/cmm (130-400) H 07/23/21 04:54 MPV 10.5 fL (7.4-10.4) H 07/23/21 04:54 Neut % (Auto) 72.2 % 07/23/21 04:54 Lymph % (Auto) 19.6 % 07/23/21 04:54 Dickey % (Auto) 4.9 % 07/23/21 04:54 Eos % (Auto) 0.3 % 07/23/21 04:54 Baso % (Auto) 0.2 % 07/23/21 04:54 Neut # (Auto) 6.45 10^3/uL (1.8-7.7) 07/23/21 04:54 Lymph # (Auto) 1.8 10^3/uL (0.8-4.8) 07/23/21 04:54 Dickey # (Auto) 0.4 10^3/uL (0.2-0.9) 07/23/21 04:54 Eos # (Auto) 0.0 10^3/uL (0.0-0.8) 07/23/21 04:54 Baso # (Auto) 0.0 10^3/uL (0.0-0.1) 07/23/21 04:54 Nucleated RBC % (auto) 0 % 07/23/21 04:54 Nucleated RBCs # 0.0 /100WBC 07/23/21 04:54 PT 17.70 SECONDS (12.1-14.9) H 07/12/21 12:25 INR 1.41 (0.8-1.2) H 07/12/21 12:25 APTT 38.9 SECONDS (23.9-36.7) H 07/13/21 09:22 Fibrinogen 290 mg/dL (174-498) 07/12/21 12:25 D-Dimer >= 20.00 ug/mIFEU (0-0.59) H 07/15/21 05:15 Specimen Type Arterial 07/12/21 12:03 Sample Site Radial, left 07/12/21 12:03 ABG pH 7.50 (7.35-7.45) H 07/12/21 12:03 ABG pCO2 32.1 mmHg (35-45) L 07/12/21 12:03 ABG pO2 54.1 mmHg (80.0-100.0) L 07/12/21 12:03 ABG HCO3 24.9 mmol/L (22-26) 07/12/21 12:03 ABG Base Excess 2.0 mmol/L (-2.0-2.0) 07/12/21 12:03 Nilesh Test Pos 07/12/21 12:03 Hematocrit 33.9 % (42-52) L 07/12/21 12:03 O2 Delivery Device Nrb 07/12/21 12:03 O2 Liters/Min 15.0 % 07/12/21 12:03 FiO2 100.0 % 07/12/21 12:03 Process Consultant ID Ed 07/12/21 12:03 Sodium 130 mmol/L (136-145) L 07/25/21 11:05 Potassium 4.7 mmol/L (3.5-5.1) 07/25/21 11:05 Chloride 95 mmol/L (98-107) L 07/25/21 11:05 Carbon Dioxide 21 mmol/L (22-29) L 07/25/21 11:05 Anion Gap 18.7 (5-19) 07/25/21 11:05 BUN 23 mg/dL (6-20) H 07/25/21 11:05 Creatinine 0.5 mg/dL (0.7-1.2) L 07/25/21 11:05 GFR Calculation 171.4 mL/min (90-130) H 07/25/21 11:05 Glucose 97 mg/dL (65-115) 07/25/21 11:05 Calculated Osmolality 274 mOsm/kg (285-295) L 07/25/21 11:05 Lactic Acid 1.6 mmol/L (0.5-2.2) 07/12/21 12:25 Calcium 9.7 mg/dL (8.5-10.5) 07/25/21 11:05 Magnesium 2.1 mg/dL (1.7-2.3) 07/12/21 12:25 Ferritin 569 ng/mL (30-400) H 07/12/21 12:25 Total Bilirubin 0.5 mg/dL (0.15-1.2) 07/25/21 11:05 AST 22 U/L (0-40) 07/25/21 11:05 ALT 70 U/L (0-41) H 07/25/21 11:05 Alkaline Phosphatase 257 IU/L (40-130) H 07/25/21 11:05 Troponin T Gen 5 ng/L 28 ng/L (0-15) H 07/12/21 12:25 C-Reactive Protein 17.4 mg/L (0.0-4.9) H 07/20/21 04:18 NT-Pro-B Natriuret Pep 545 pg/mL (0-125) H 07/12/21 12:25 Total Protein 6.9 g/dL (6.6-8.7) 07/25/21 11:05 Albumin 3.6 g/dL (3.5-5.2) 07/25/21 11:05 Globulin 3.3 g/dL (1.3-4.6) 07/25/21 11:05 Interleukin 6 360.00 pg/mL (<5.00) H 07/12/21 12:25 Procalcitonin 0.09 ng/mL (0-0.5) 07/12/21 12:25 Hepatitis A IgM Ab Non-reactive (Nonreactive) 07/21/21 03:15 Hep Bs Antigen Non-reactive (Nonreactive) 07/21/21 03:15 Hep Bs Antibody 3.5 (11.5-1000) L 07/21/21 03:15 Hep B Core Total Ab Non-reactive (Nonreactive) 07/21/21 03:15 Hepatitis C Antibody Non-reactive (Nonreactive) 07/21/21 03:15 Vitals Last Vital Signs Temp 98.4 F 07/25/21 12:12 Pulse 88 07/25/21 12:12 Resp 17 07/25/21 12:12 BP 116/81 07/25/21 12:12 Pulse Ox 91 07/25/21 12:12 Discharge Plan Discharge Patient Disposition: Home Condition: Fair Prescriptions: New sennosides-docusate sodium [Stool Softener-Laxative] 8.6-50 mg Tablet 1 tab PO BID 30 Days Qty: 60 0RF dextromethorphan-guaifenesin 10-100 mg/5 mL Syrup 10 ml PO Q6H PRN (Reason: Cough) 30 Days Qty: 120 0RF alprazolam 0.5 mg Tablet 0.25 mg PO BID PRN (Reason: Anxiety) Qty: 14 0RF pantoprazole 40 mg Tablet,Delayed Release (Dr/Ec) 40 mg PO BID 30 Days Qty: 60 0RF metoprolol tartrate 25 mg Tablet 12.5 mg PO BID@0900,2100 30 Days Qty: 60 0RF lactulose 20 gram/30 mL Solution 10 g PO DAILY Qty: 1500 0RF Eliquis 5 mg Tablet 5 mg PO BID@0900,2100 90 Days Qty: 180 0RF prednisone 10 mg tablets,dose pack See Rx Instructions .ROUTE .COMPLEX Qty: 21 0RF Rx Instructions: orally per package directions fluticasone propion-salmeterol [Advair Diskus] 500-50 mcg/dose blister with device 1 inh inhalation BID Qty: 60 0RF Spiriva with HandiHaler 18 mcg capsule, w/inhalation device 1 cap inhalation DAILY 30 Days Qty: 30 0RF Rx Instructions: puncture 1 cap using device; one dose = 2 inhalations albuterol sulfate 90 mcg/actuation HFA aerosol inhaler 1 inh inhalation Q6H PRN (Reason: shortness of breath or wheezing) Qty: 6.7 1RF No Action No Known Home Medications 0RF Discharge Orders: Discharge Order (Routine); Ordered 07/25/21 Ordered By: Felicia Farmer Other Ambulatory Orders: DME: Oxygen (Order) Location: None Selected Ordered By: Felicia Farmer Referrals: Datar,Mahendra Barahona MD [Physician] - 7-10 days (follow up from hospital discharge- pneumothorax and pneumomediastinum post COVID ) [facility] [Primary Care Provider] - 7-10 days Discharge Diet: Advance as tolerated Discharge Activity: Resume usual activity Patient Instructions: Opioid Safety Discharge Attestations Time Spent in Discharge Care*: greater than 30 min Quality Metrics Clinical Quality Measures [ Venous Thromboembolism { Contraindication to Overlap Therapy: Overlap treatment not indicated; VTE Discharge Education: Follow-up arranged;}] Coding Level of Care Code Acute Chg [facility] note Diagnoses Acute hypoxemic respiratory failure J96.01 Pulmonary embolism I26.99 2019 novel coronavirus-infected pneumonia (NCIP) U07.1; J12.82 Ileus K56.7 Physical deconditioning R53.81 Critical illness myopathy G72.81 Pneumothorax J93.9 Pneumomediastinum J98.2
--- NOTE | 2021-07-25 17:03 | PC.NURSE ---
Discharge paperwork discussed with pt and family members. Follow up appoints that need to be called on Monday, written script and oxygen. Verbalized understanding.
--- NOTE | 2021-07-26 18:24 | PC.SOCIAL ---
Dr Ware provided a new script for clarification of prednisone called [facility] [place]. Spoke to pharmacist Alessandra and gave verbal which was repeated back to Dr Ware once given for clarification: Prednisone 40mg once daily for 3 days, 30mg once daily for 3 days, 20mg once daily for 3 days then 10mg once daily for 3 days then stop.
== END 2021-07-25 17:45 | disposition home health service (06) | DRG 177 ==
LOC: ER 17:14 → ER IP 17:15 → MEDSURG 20:02 → ICU 07-16 17:43 → MEDSURG 07-23 16:11
PROVIDERS: Admitting Provider Internal Medicine; Emergency Provider Emergency Medicine; Visit Provider Student in an Organized Health Care Education/Training Program
DX: U07.1 COVID-19 (principal); J12.82 Pneumonia due to coronavirus disease 2019; J96.01 Acute respiratory failure with hypoxia; I26.99 Other pulmonary embolism without acute cor pulmonale; K56.7 Ileus, unspecified; G72.81 Critical illness myopathy; J93.9 Pneumothorax, unspecified; Z87.891 Personal history of nicotine dependence; J34.2 Deviated nasal septum; F41.9 Anxiety disorder, unspecified; K59.00 Constipation, unspecified; J98.2 Interstitial emphysema; R74.01 Elevation of levels of liver transaminase levels
CPT/HCPCS: 36415; 36600; 71045; 71275; 74018; 76705; 80053; 82728; 82803; 83520; 83605; 83735; 83880; 84145; 84484; 85018; 85025; 85378; 85384; 85610; 85730; 86140; 86705; 86706; 86709; 86803; 87040; 87340; 93005; 94640; 94664; 96365; 96367; 96372; 97116; 97161; 99285; J1100; J1644; J1650; J1940; J2060; J7512; J7611; J7626; Q9967